=== PATIENT | male | born 1960 | race African-American/Black ===

== ENCOUNTER 2017-06-14 13:46 | Inpatient (IN) | payer OTHER ==
[2017-06-14 15:31] VITALS: BMI 20.3
--- NOTE | 2017-06-14 18:26 | HP ---
CIWA Score - CIWA Score Nausea/Vomitin-Mild Nausea/No Vomiting Muscle Tremors: 3 Anxiety: 3 Agitation: 2 Paroxysmal Sweats: 2 Orientation: 1-Uncertain about Date Tacttile Disturbances: 1-Very Mild Itch/Numbness Auditory Disturbances: 2-Mild Harshness/Frighten Visual Disturbances: 0-None Headache: 1-Very Mild CIWA-Ar Total Score: 16 Admission ROS BHS - HPI Chief Complaint: WITHDRAWAL SYMPTOMS Allergies/Adverse Reactions: Allergies Allergy/AdvReac Type Severity Reaction Status Date / Time No Known Allergies Allergy Verified 06/14/17 17:47 History of Present Illness: 56 y.o. man with an extensive history of alcohol and drug dependence is here seeking detox. He reports he completed detox at [facility] 3 months ago. He reports he does not have a significant period of sobriety. Exam Limitations: Intoxication - Ebola screening Have you traveled outside of the country in the last 21 days: No Have you had contact with anyone from an Ebola affected area: No Have you been sick,other than usual withdrawal symptoms: No Do you have a fever: No - Review of Systems Constitutional: Loss of Appetite, Changes in sleep, Unintentional Wgt. Loss EENT: reports: Blurred Vision, Double Vision, Hearing Loss Respiratory: reports: No Symptoms reported Cardiac: reports: No Symptoms Reported GI: reports: No Symptoms Reported : reports: No Symptoms Reported Musculoskeletal: reports: No Symptoms Reported Integumentary: reports: No Symptoms Reported Neuro: reports: Tingling (B/L LE) Endocrine: reports: No Symptoms Reported Hematology: reports: Anemia (SCOTT) Psychiatric: reports: Mood/Affect Appropiate, Orientated x3, Anxious Other Systems: Reviewed and Negative Patient History - Patient Medical History Hx Anemia: Yes Hx Asthma: No Hx Chronic Obstructive Pulmonary Disease (COPD): No Hx Cancer: Yes (Prostate CA ) Hx Cardiac Disorders: No Hx Congestive Heart Failure: No Hx Hypertension: Yes (currently on treatment) Hx Hypercholesterolemia: No Hx Pacemaker: No HX Cerebrovascular Accident: No Hx Seizures: No Hx Dementia: No Hx Diabetes: Yes (Metformin ) Hx Gastrointestinal Disorders: No Hx Liver Disease: No Hx Genitourinary Disorders: Yes (PROSTATE CA) Hx Sexually Transmitted Disorders: No Hx Renal Disease (ESRD): No Hx Thyroid Disease: No Hx Human Immunodeficiency Virus (HIV): No Hx Hepatitis C: Yes Hx Depression: No Hx Suicide Attempt: No (DENIES) Hx Bipolar Disorder: No Hx Schizophrenia: No - Patient Surgical History Past Surgical History: Yes Hx Neurologic Surgery: No Hx Cataract Extraction: No Hx Cardiac Surgery: No Hx Lung Surgery: No Hx Breast Surgery: No Hx Breast Biopsy: No Hx Abdominal Surgery: No Hx Appendectomy: No Hx Cholecystectomy: No Hx Genitourinary Surgery: Yes (SX FOR PROSTATE CANCER IN 2002) Hx Section: No Hx Orthopedic Surgery: No Other Surgical History: prostate Anesthesia Reaction: No - PPD History Previous Implant?: Yes Documented Results: Negative w/proof Implanted On Prior [facility] Admission?: Yes Date: 10/31/13 PPD to be Administered?: Yes - Reproductive History Patient is a Female of Child Bearing Age (11 -55 yrs old): No - Smoking Cessation Smoking history: Current some day smoker Have you smoked in the past 12 months: Yes Aproximately how many cigarettes per day: 1 Hx Chewing Tobacco Use: No Initiated information on smoking cessation: Yes 'Breaking Loose' booklet given: 06/14/17 - Substance & Tx. History Hx Alcohol Use: Yes Hx Substance Use: No Substance Use Type: Alcohol Hx Substance Use Treatment: Yes (Detox @ [facility] 3 months ago; Does not recall last rehab admission ) - Substances Abused Alcohol Route: Oral Frequency: Daily Amount used: beer- 6 - 24 oz Age of first use: 13 Date of Last Use: 06/14/17 Family Disease History - Family Disease History Family History: Denies Admission Physical Exam BHS - Vital Signs Vital Signs: Vital Signs - 24 hr 06/14/17 15:28 Temperature 96 F L Pulse Rate 76 Respiratory 20 Rate Blood Pressure 141/88 - Physical General Appearance: Yes: Disheveled, Alcohol on Breath, Thin, Tremorous, Sweating, Anxious HEENTM: Yes: Hearing grossly Normal, Normocephalic, Normal Voice Respiratory: Yes: Chest Non-Tender, Lungs Clear, Normal Breath Sounds, No Respiratory Distress, No Accessory Muscle Use Neck: Yes: No masses,lesions,Nodules, Trachea in good position Breast: Yes: Breast Exam Deferred Cardiology: Yes: Regular Rhythm, Regular Rate Abdominal: Yes: Normal Bowel Sounds, Non Tender, Flat, Soft Genitourinary: Yes: Other (No complaints reported) Back: Yes: Normal Inspection Musculoskeletal: Yes: Joint Stiffness (Right knee) Extremities: Yes: Normal Inspection, Normal Range of Motion, Non-Tender 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 NML intact, Alert, Normal Mood/Affect, Normal Response Integumentary: Yes: Normal Color, Dry, Warm Lymphatic: Yes: Within Normal Limits - Diagnostic (1) DM Diabetes mellitus type 2 Current Visit: Yes Status: Chronic (2) Essential hypertension Current Visit: Yes Status: Chronic (3) Alcohol dependence with uncomplicated withdrawal Current Visit: Yes Status: Chronic (4) Nicotine dependence Current Visit: Yes Status: Chronic Cleared for Admission [facility] - Detox or Rehab [facility] Level of Care: Medically Managed Detox Regimen/Protocol: Librium [facility] Breath Alcohol Content Breath Alcohol Content: 0.220 Urine Drug Screen - Results Drug Screen Negative: No Urine Drug Screen Results: GORDON-Cocaine, BZO-Benzodiazepines
[2017-06-14] MEDS ORDERED: chlordiazePOXIDE HCL 25 MG CAPSULE PO PRN (18:42)
[2017-06-14] MEDS ORDERED: LOPERAMIDE HCL 2 MG CAPSULE PO PRN (18:42)
[2017-06-14] MEDS ORDERED: guaiFENesin/D-METHORPHAN HB 10 ML UNIT-DOSE CUPS PO PRN (18:42)
[2017-06-14] MEDS ORDERED: ACETAMINOPHEN 325 MG TABLET (FP) PO PRN (18:42)
[2017-06-14] MEDS ORDERED: NICOTINE POLACRILEX 2 MG GUM BC PRN (18:42)
[2017-06-14] MEDS ORDERED: MAGNESIUM HYDROX 2400MG/30ML ORAL SUSPENSION 30 ML CUP PO PRN (18:42)
[2017-06-14] MEDS ORDERED: MAGNESIUM CITRATE 300 ML BOTTLE PO PRN (18:42)
[2017-06-14] MEDS ORDERED: P-EPHED 60MG/TRIPROLIDI 2.5MG TABLET PO PRN (18:42)
[2017-06-14] MEDS ORDERED: diphenhydrAMINE HCL 50 MG CAPSULE PO PRN (18:42)
[2017-06-14] MEDS ORDERED: chlordiazePOXIDE HCL 25 MG CAPSULE PO ONE (18:42)
[2017-06-14] MEDS ORDERED: MENTHOL/PHENOL 1 EACH UD MM PRN (18:42)
[2017-06-14] MEDS ORDERED: MAG HYDROX/AL HYDROX/SIMETH 30 ML UNIT-DOSE CUP PO PRN (18:42)
[2017-06-14] MEDS: THIAMINE HCL 100 MG TABLET (FP) PO SCH (22:29)
[2017-06-14] MEDS: chlordiazePOXIDE HCL 25 MG CAPSULE PO SCH (22:29)
[2017-06-14 23:10] LABS: URINE APPEARANCE CLEAR; URINE BILIRUBIN NEGATIVE (NEGATIVE); URINE BLOOD NEGATIVE (NEGATIVE); URINE COLOR COLORLESS; URINE GLUCOSE (UA) NEGATIVE (NEGATIVE); URINE KETONE NEGATIVE (NEGATIVE); URINE LEUK ESTERASE NEGATIVE (NEGATIVE); URINE NITRITE NEGATIVE (NEGATIVE); URINE PROTEIN NEGATIVE (NEGATIVE); URINE UROBILINOGEN NEGATIVE mg/dL (0.2-1.0)
[2017-06-15] MEDS: chlordiazePOXIDE HCL 25 MG CAPSULE PO SCH ×4 (06:02→22:24)
[2017-06-15] MEDS: metFORMIN HCL 500 MG TABLET (FP) PO SCH ×2 (07:13→17:26)
[2017-06-15 10:00] LABS: MCH 31.7 pg (25.7-33.7); MEAN CELL VOLUME 96.1 fl (80-96); MEAN PLT VOLUME 7.7 fl (7.5-11.1); PLATELET COUNT 152 K/MM3 (134-434); RDW 13.9 % (11.9-15.9); WHITE BLOOD COUNT 3.3 K/mm3 (4.0-10.0)
[2017-06-15] MEDS: LISINOPRIL 20 MG TABLET (FP) PO SCH (10:22)
[2017-06-15] MEDS: PRENATAL VITAMINS W/ FOLIC ACID TABLET (FP) PO SCH (10:24)
--- NOTE | 2017-06-15 10:24 | CONSULT ---
[facility] Psychiatric Consult - Data Date of interview: 06/15/17 Admission source: [facility] Identifying data: Readmission to [facility] for this 56 y/o AA male seeking detox treatment on for alcohol dependence (self-report of sporadic use of cannabis and crack/cocaine).Patient is ,a father of one,homeless ( alf),unemployed and supported on Welfare. Substance Abuse History: Fully discussed with the patient in this interview.He confirms this pattern of substance abuse described in this [facility] report : Smoking Cessation. Smoking history: Current some day smoker. Have you smoked in the past 12 months: Yes. Aproximately how many cigarettes per day: 1. Hx Chewing Tobacco Use: No. Initiated information on smoking cessation: Yes. ' Breaking Loose' booklet given: 06/14/17. - Substance & Tx. History. Hx Alcohol Use: Yes. Hx Substance Use: No. Substance Use Type: Alcohol. Hx Substance Use Treatment: Yes (Detox @ [facility] 3 months ago; Does not recall last rehab admission ). - Substances Abused. Alcohol. Route: Oral. Frequency: Daily. Amount used: beer- 6 - 24 oz. Age of first use: 13. Date of Last Use: 06/14/17 Medical History: Remarkable for cancer of prostate (surgery in 2002),diabetes mellitus,hypertension,arthritis,hepatitis C,chronic right knee pain and a history of anemia. Psychiatric History: Patient denies. Physical/Sexual Abuse/Trauma History: Patient denies. Additional Comment: Urine Drug Screen Results: GORDON-Cocaine, BZO- Benzodiazepines.Noted. Mental Status Exam - Mental Status Exam Alert and Oriented to: Time, Place, Person Patient Appearance: Well Groomed Mood: Nervous, Anxious Affect: Appropriate, Normal Range Patient Behavior: Fatigued, Cooperative Speech Pattern: Clear Voice Loudness: Normal Thought Process: Intact, Goal Oriented Thought Disorder: Not Present Hallucinations: Denies Suicidal Ideation: Denies Homicidal Ideation: Denies Insight/Judgement: Poor Sleep: Well Appetite: Good Muscle strength/Tone: Normal Gait/Station: Normal Psychiatric Findings - Problem List (Andrew 1, 2,3) (1) Alcohol dependence with uncomplicated withdrawal Current Visit: Yes Status: Chronic (2) Nicotine dependence Current Visit: Yes Status: Acute (3) DM Diabetes mellitus type 2 Current Visit: Yes Status: Chronic (4) Hepatitis C carrier Current Visit: Yes Status: Active - Initial Treatment Plan Initial Treatment Plan: Psychoeducation.Detoxification.Observation.
[2017-06-15 10:49] LABS: ALBUMIN 3.3 g/dl (3.4-5.0); ALK PHOS 132 U/L (45-117); ANION GAP 7 (8-16); BILIRUBIN,TOTAL 0.3 mg/dL (0.2-1.0); CALCIUM 8.8 mg/dL (8.5-10.1); CO2 23 mmol/L (21-32); CREATININE 0.8 mg/dL (0.7-1.3); GLUCOSE,RANDOM 119 mg/dL (74-106); SGOT/AST 45 U/L (15-37); SGPT/ALT 41 U/L (12-78); TOT PROT 6.4 g/dl (6.4-8.2)
--- NOTE | 2017-06-15 15:53 | PN ---
[facility] CIWA - CIWA Score Nausea/Vomitin-Mild Nausea/No Vomiting Muscle Tremors: 4-Moderate,w/Arms Extend Anxiety: 2 Agitation: 1-Slight > Activity Paroxysmal Sweats: 1-Minimal Palms Moist Orientation: 0-Oriented Tacttile Disturbances: 3-Moderate Itch/Numb/Burn Auditory Disturbances: 1-Very Mild Visual Disturbances: 3-Moderate Sensitivity Headache: 0-None Present CIWA-Ar Total Score: 16 [facility] Progress Note (SOAP) Subjective: Interrupted sleep, Tremors, Diarrhea. Objective: PT. A & O X 3. NO ACUTE DISTRESS. 06/15/17 15:49 Vital Signs Temperature 97.6 F 06/15/17 13:23 Pulse Rate 78 06/15/17 13:23 Respiratory Rate 18 06/15/17 13:23 Blood Pressure 162/97 06/15/17 13:23 O2 Sat by Pulse Oximetry (%) Laboratory Tests 06/14/17 06/14/17 06/15/17 17:54 22:50 05:14 WBC RBC Hgb Hct MCV MCH MCHC RDW Plt Count MPV Sodium Potassium Chloride Carbon Dioxide Anion Gap BUN Creatinine Creat Clearance w eGFR POC Glucometer 186 121 Random Glucose Calcium Total Bilirubin AST ALT Alkaline Phosphatase Total Protein Albumin Urine Color Colorless Urine Appearance Clear Urine pH 6.0 Ur Specific [place] <= 1.005 Urine Protein Negative Urine Glucose (UA) Negative Urine Ketones Negative Urine Blood Negative Urine Nitrite Negative Urine Bilirubin Negative Urine Urobilinogen Negative Ur Leukocyte Esterase Negative RPR Titer 06/15/17 06/15/17 06/15/17 07:30 07:30 07:30 WBC 3.3 L RBC 3.33 L Hgb 10.6 L D Hct 32.0 L MCV 96.1 H MCH 31.7 MCHC 33.0 RDW 13.9 Plt Count 152 D MPV 7.7 D Sodium 140 Potassium 4.2 D Chloride 110 H Carbon Dioxide 23 Anion Gap 7 L BUN 11 D Creatinine 0.8 D Creat Clearance w eGFR > 60 POC Glucometer Random Glucose 119 H Calcium 8.8 Total Bilirubin 0.3 D AST 45 H D ALT 41 Alkaline Phosphatase 132 H Total Protein 6.4 Albumin 3.3 L Urine Color Urine Appearance Urine pH Ur Specific [place] Urine Protein Urine Glucose (UA) Urine Ketones Urine Blood Urine Nitrite Urine Bilirubin Urine Urobilinogen Ur Leukocyte Esterase RPR Titer Nonreactive LABS NOTED. Assessment: 06/15/17 15:50 WITHDRAWAL SYMPTOMS. Plan: CONTINUE DETOX. FEOSOL, 325 MG PO WITH MEALS FOR LOW CBC LEVELS.
[2017-06-15] MEDS: FERROUS SO4 325 MG TABLET (FP) PO SCH (17:26)
[2017-06-15] MEDS ORDERED: cloNIDine HCL 0.1 MG TABLET PO ONE (18:29)
[2017-06-15] MEDS: THIAMINE HCL 100 MG TABLET (FP) PO SCH (22:24)
[2017-06-15] MEDS: hydrOXYzine PAMOATE 50 MG CAPSULE (FP) PO PRN (22:26)
[2017-06-16] MEDS: chlordiazePOXIDE HCL 25 MG CAPSULE PO SCH ×3 (05:53→17:04)
[2017-06-16] MEDS: metFORMIN HCL 500 MG TABLET (FP) PO SCH ×2 (06:20→17:04)
[2017-06-16] MEDS: FERROUS SO4 325 MG TABLET (FP) PO SCH ×2 (08:01→17:04)
--- NOTE | 2017-06-16 08:16 | EKG ---
Test Reason : Blood Pressure : / mmHG Vent. Rate : 079 BPM Atrial Rate : 079 BPM P-R Int : 168 ms QRS Dur : 086 ms QT Int : 378 ms P-R-T Axes : 066 040 053 degrees QTc Int : 433 ms NORMAL SINUS RHYTHM NORMAL ECG NO PREVIOUS ECGS AVAILABLE Confirmed by DEJAH GROSSMAN, RAMIRO ([id number]) on 06/16/2017 8:16:11 AM Referred By: Moose Love Confirmed By:RAMIRO POND MD
[2017-06-16] MEDS: PRENATAL VITAMINS W/ FOLIC ACID TABLET (FP) PO SCH (10:33)
[2017-06-16] MEDS: LISINOPRIL 20 MG TABLET (FP) PO SCH (10:33)
[2017-06-16] MEDS: CYCLOBENZAPRINE HCL 10 MG TABLET (FP) PO PRN (13:36)
--- NOTE | 2017-06-16 15:18 | PN ---
S CIWA - CIWA Score Nausea/Vomitin Muscle Tremors: 4-Moderate,w/Arms Extend Anxiety: 3 Agitation: 1-Slight > Activity Paroxysmal Sweats: 3 Orientation: 0-Oriented Tacttile Disturbances: 2-Mild Itch/Numbness/Burn Auditory Disturbances: 0-None Visual Disturbances: 3-Moderate Sensitivity Headache: 0-None Present CIWA-Ar Total Score: 18 [facility] Progress Note (SOAP) Subjective: Body aches, Lower Back ache, Interrupted Sleep, Tremors. Objective: PT. A & O X 3, OBSERVED AMBULATING AMBULATING ON UNIT. NO ACUTE DISTRESS. PT. DENIES CHEST PAIN. 06/16/17 15:16 Vital Signs Temperature 98.6 F 06/16/17 14:05 Pulse Rate 69 06/16/17 14:05 Respiratory Rate 20 06/16/17 14:05 Blood Pressure 152/91 06/16/17 14:05 O2 Sat by Pulse Oximetry (%) Laboratory Tests 06/14/17 06/14/17 06/15/17 17:54 22:50 05:14 WBC RBC Hgb Hct MCV MCH MCHC RDW Plt Count MPV Sodium Potassium Chloride Carbon Dioxide Anion Gap BUN Creatinine Creat Clearance w eGFR POC Glucometer 186 121 Random Glucose Calcium Total Bilirubin AST ALT Alkaline Phosphatase Total Protein Albumin Urine Color Colorless Urine Appearance Clear Urine pH 6.0 Ur Specific [place] <= 1.005 Urine Protein Negative Urine Glucose (UA) Negative Urine Ketones Negative Urine Blood Negative Urine Nitrite Negative Urine Bilirubin Negative Urine Urobilinogen Negative Ur Leukocyte Esterase Negative RPR Titer 06/15/17 06/15/17 06/15/17 07:30 07:30 07:30 WBC 3.3 L RBC 3.33 L Hgb 10.6 L D Hct 32.0 L MCV 96.1 H MCH 31.7 MCHC 33.0 RDW 13.9 Plt Count 152 D MPV 7.7 D Sodium 140 Potassium 4.2 D Chloride 110 H Carbon Dioxide 23 Anion Gap 7 L BUN 11 D Creatinine 0.8 D Creat Clearance w eGFR > 60 POC Glucometer Random Glucose 119 H Calcium 8.8 Total Bilirubin 0.3 D AST 45 H D ALT 41 Alkaline Phosphatase 132 H Total Protein 6.4 Albumin 3.3 L Urine Color Urine Appearance Urine pH Ur Specific [place] Urine Protein Urine Glucose (UA) Urine Ketones Urine Blood Urine Nitrite Urine Bilirubin Urine Urobilinogen Ur Leukocyte Esterase RPR Titer Nonreactive 06/15/17 06/16/17 16:16 05:52 WBC RBC Hgb Hct MCV MCH MCHC RDW Plt Count MPV Sodium Potassium Chloride Carbon Dioxide Anion Gap BUN Creatinine Creat Clearance w eGFR POC Glucometer 113 127 Random Glucose Calcium Total Bilirubin AST ALT Alkaline Phosphatase Total Protein Albumin Urine Color Urine Appearance Urine pH Ur Specific [place] Urine Protein Urine Glucose (UA) Urine Ketones Urine Blood Urine Nitrite Urine Bilirubin Urine Urobilinogen Ur Leukocyte Esterase RPR Titer LABS NOTED. Assessment: 06/16/17 15:16 WITHDRAWAL SYMPTOMS. Plan: CONTINUE DETOX.
[2017-06-16] MEDS ORDERED: cloNIDine HCL 0.1 MG TABLET PO ONE (17:35)
[2017-06-16] MEDS: IBUPROFEN 600 MG TABLET (FP) PO PRN (18:25)
[2017-06-16] MEDS: THIAMINE HCL 100 MG TABLET (FP) PO SCH (21:56)
[2017-06-16] MEDS: hydrOXYzine PAMOATE 50 MG CAPSULE (FP) PO PRN (21:57)
[2017-06-16] MEDS: chlordiazePOXIDE 5 MG CAPSULE PO SCH (21:59)
[2017-06-17] MEDS: chlordiazePOXIDE 5 MG CAPSULE PO SCH ×3 (05:34→17:00)
[2017-06-17] MEDS: metFORMIN HCL 500 MG TABLET (FP) PO SCH ×2 (07:45→17:00)
[2017-06-17] MEDS: FERROUS SO4 325 MG TABLET (FP) PO SCH ×2 (07:46→17:00)
[2017-06-17] MEDS: PRENATAL VITAMINS W/ FOLIC ACID TABLET (FP) PO SCH (10:35)
[2017-06-17] MEDS: LISINOPRIL 20 MG TABLET (FP) PO SCH (10:35)
--- NOTE | 2017-06-17 13:51 | PN ---
[facility] Progress Note (SOAP) Subjective: Tremor, chills, anxious, interrupted sleep Objective: 06/17/17 13:50 Last Vital Signs Temp Pulse Resp BP Pulse Ox 96.8 F L 71 18 128/84 06/17/17 10:18 06/17/17 10:18 06/17/17 10:18 06/17/17 10:18 Laboratory Tests 06/14/17 06/14/17 06/15/17 17:54 22:50 05:14 WBC RBC Hgb Hct MCV MCH MCHC RDW Plt Count MPV Sodium Potassium Chloride Carbon Dioxide Anion Gap BUN Creatinine Creat Clearance w eGFR POC Glucometer 186 121 Random Glucose Calcium Total Bilirubin AST ALT Alkaline Phosphatase Total Protein Albumin Urine Color Colorless Urine Appearance Clear Urine pH 6.0 Ur Specific [place] <= 1.005 Urine Protein Negative Urine Glucose (UA) Negative Urine Ketones Negative Urine Blood Negative Urine Nitrite Negative Urine Bilirubin Negative Urine Urobilinogen Negative Ur Leukocyte Esterase Negative RPR Titer 06/15/17 06/15/17 06/15/17 07:30 07:30 07:30 WBC 3.3 L RBC 3.33 L Hgb 10.6 L D Hct 32.0 L MCV 96.1 H MCH 31.7 MCHC 33.0 RDW 13.9 Plt Count 152 D MPV 7.7 D Sodium 140 Potassium 4.2 D Chloride 110 H Carbon Dioxide 23 Anion Gap 7 L BUN 11 D Creatinine 0.8 D Creat Clearance w eGFR > 60 POC Glucometer Random Glucose 119 H Calcium 8.8 Total Bilirubin 0.3 D AST 45 H D ALT 41 Alkaline Phosphatase 132 H Total Protein 6.4 Albumin 3.3 L Urine Color Urine Appearance Urine pH Ur Specific [place] Urine Protein Urine Glucose (UA) Urine Ketones Urine Blood Urine Nitrite Urine Bilirubin Urine Urobilinogen Ur Leukocyte Esterase RPR Titer Nonreactive 06/15/17 06/16/17 06/16/17 16:16 05:52 16:16 WBC RBC Hgb Hct MCV MCH MCHC RDW Plt Count MPV Sodium Potassium Chloride Carbon Dioxide Anion Gap BUN Creatinine Creat Clearance w eGFR POC Glucometer 113 127 115 Random Glucose Calcium Total Bilirubin AST ALT Alkaline Phosphatase Total Protein Albumin Urine Color Urine Appearance Urine pH Ur Specific [place] Urine Protein Urine Glucose (UA) Urine Ketones Urine Blood Urine Nitrite Urine Bilirubin Urine Urobilinogen Ur Leukocyte Esterase RPR Titer 06/17/17 05:32 WBC RBC Hgb Hct MCV MCH MCHC RDW Plt Count MPV Sodium Potassium Chloride Carbon Dioxide Anion Gap BUN Creatinine Creat Clearance w eGFR POC Glucometer 116 Random Glucose Calcium Total Bilirubin AST ALT Alkaline Phosphatase Total Protein Albumin Urine Color Urine Appearance Urine pH Ur Specific [place] Urine Protein Urine Glucose (UA) Urine Ketones Urine Blood Urine Nitrite Urine Bilirubin Urine Urobilinogen Ur Leukocyte Esterase RPR Titer Labs noted Assessment: 06/17/17 13:51 Withdrawal symptoms Plan: Continue detox
[2017-06-17] MEDS ORDERED: amLODIPine BESYLATE 5 MG TABLET (FP) PO ONE (17:10)
[2017-06-17] MEDS: chlordiazePOXIDE HCL 10 MG CAPSULE PO SCH (22:17)
[2017-06-17] MEDS: hydrOXYzine PAMOATE 50 MG CAPSULE (FP) PO PRN (22:17)
[2017-06-17] MEDS: CYCLOBENZAPRINE HCL 10 MG TABLET (FP) PO PRN (22:17)
[2017-06-17] MEDS: THIAMINE HCL 100 MG TABLET (FP) PO SCH (22:17)
[2017-06-17] MEDS: IBUPROFEN 600 MG TABLET (FP) PO PRN (22:19)
[2017-06-18 06:56] VITALS: BP 140/103; PULSE 77; TEMP 97
[2017-06-18] MEDS: chlordiazePOXIDE HCL 10 MG CAPSULE PO SCH (07:24)
[2017-06-18] MEDS ORDERED: amLODIPine BESYLATE 5 MG TABLET (FP) PO SCH (10:00)
--- NOTE | 2017-06-18 12:00 | DS ---
[facility] Detox Discharge Summary Admission Date: 06/14/17 Discharge Date: 06/18/17 - History Present History: Alcohol Dependence Additional Comments: PATIENT GOING HOME. PATIENT ADVISED TO CONSIDER LOCAL 12-STEP / AA/ NA OUTPATIENT PROGRAMS FOR AFTERCARE FOLLOW-UP. PATIENT DISCHARGED FROM UNIT IN STABLE MEDICAL CONDITION. Pertinent Past History: Type II DM, HTN, Hep C, History of anemia. - Physical Exam Results Vital Signs: Vital Signs Temperature 97.0 F L 06/18/17 06:55 Pulse Rate 77 06/18/17 06:55 Respiratory Rate 18 06/18/17 06:55 Blood Pressure 140/103 06/18/17 06:55 O2 Sat by Pulse Oximetry (%) Pertinent Admission Physical Exam Findings: WITHDRAWAL SYMPTOMS. Laboratory Tests 06/14/17 06/14/17 06/15/17 17:54 22:50 05:14 WBC RBC Hgb Hct MCV MCH MCHC RDW Plt Count MPV Sodium Potassium Chloride Carbon Dioxide Anion Gap BUN Creatinine Creat Clearance w eGFR POC Glucometer 186 121 Random Glucose Calcium Total Bilirubin AST ALT Alkaline Phosphatase Total Protein Albumin Urine Color Colorless Urine Appearance Clear Urine pH 6.0 Ur Specific [place] <= 1.005 Urine Protein Negative Urine Glucose (UA) Negative Urine Ketones Negative Urine Blood Negative Urine Nitrite Negative Urine Bilirubin Negative Urine Urobilinogen Negative Ur Leukocyte Esterase Negative RPR Titer 06/15/17 06/15/17 06/15/17 07:30 07:30 07:30 WBC 3.3 L RBC 3.33 L Hgb 10.6 L D Hct 32.0 L MCV 96.1 H MCH 31.7 MCHC 33.0 RDW 13.9 Plt Count 152 D MPV 7.7 D Sodium 140 Potassium 4.2 D Chloride 110 H Carbon Dioxide 23 Anion Gap 7 L BUN 11 D Creatinine 0.8 D Creat Clearance w eGFR > 60 POC Glucometer Random Glucose 119 H Calcium 8.8 Total Bilirubin 0.3 D AST 45 H D ALT 41 Alkaline Phosphatase 132 H Total Protein 6.4 Albumin 3.3 L Urine Color Urine Appearance Urine pH Ur Specific [place] Urine Protein Urine Glucose (UA) Urine Ketones Urine Blood Urine Nitrite Urine Bilirubin Urine Urobilinogen Ur Leukocyte Esterase RPR Titer Nonreactive 06/15/17 06/16/17 06/16/17 16:16 05:52 16:16 WBC RBC Hgb Hct MCV MCH MCHC RDW Plt Count MPV Sodium Potassium Chloride Carbon Dioxide Anion Gap BUN Creatinine Creat Clearance w eGFR POC Glucometer 113 127 115 Random Glucose Calcium Total Bilirubin AST ALT Alkaline Phosphatase Total Protein Albumin Urine Color Urine Appearance Urine pH Ur Specific [place] Urine Protein Urine Glucose (UA) Urine Ketones Urine Blood Urine Nitrite Urine Bilirubin Urine Urobilinogen Ur Leukocyte Esterase RPR Titer 06/17/17 06/17/17 06/18/17 05:32 16:20 05:28 WBC RBC Hgb Hct MCV MCH MCHC RDW Plt Count MPV Sodium Potassium Chloride Carbon Dioxide Anion Gap BUN Creatinine Creat Clearance w eGFR POC Glucometer 116 119 122 Random Glucose Calcium Total Bilirubin AST ALT Alkaline Phosphatase Total Protein Albumin Urine Color Urine Appearance Urine pH Ur Specific [place] Urine Protein Urine Glucose (UA) Urine Ketones Urine Blood Urine Nitrite Urine Bilirubin Urine Urobilinogen Ur Leukocyte Esterase RPR Titer LABS NOTED. - Treatment Hospital Course: Detox Protocol Followed, Detoxed Safely, Responded well, Discharged Condition Good Patient has Accepted a Rehab Referral to: PT. GOING HOME, ADVISED TO F/U WITH LOCAL 12-STEP/AA PROGRAM. - Medication Discharge Medications: Ambulatory Orders Amlodipine Besylate [Norvasc -] 5 mg PO DAILY 10/29/13 Lisinopril [Prinivil -] 20 mg PO DAILY 10/29/13 - Diagnosis (1) Hepatitis C carrier Status: Chronic (2) Nicotine dependence Status: Chronic Qualifiers: Nicotine product type: cigarettes Substance use status: uncomplicated Qualified Code(s): F17.210 - Nicotine dependence, cigarettes, uncomplicated (3) Alcohol dependence with uncomplicated withdrawal Status: Acute (4) DM Diabetes mellitus type 2 Status: Chronic (5) Essential hypertension Status: Chronic - AMA Did Patient Leave Against Medical Advice: No
== END 2017-06-18 06:45 | disposition home or self-care (01) | DRG 775 ==
LOC: YASAS 13:46 → Y3N 18:25
PROVIDERS: ADMIT Internal Medicine; ATTEND Internal Medicine
PROC: HZ2ZZZZ Detoxification Services for Substance Abuse Treatment (ICD-10-PCS; principal; 2017-06-14)
DX: F10.230 Alcohol dependence with withdrawal, uncomplicated (principal); F17.210 Nicotine dependence, cigarettes, uncomplicated; I10 Essential (primary) hypertension; E11.9 Type 2 diabetes mellitus without complications; B18.2 Chronic viral hepatitis C; Z85.46 Personal history of malignant neoplasm of prostate; Z79.84 Long term (current) use of oral hypoglycemic drugs
CPT/HCPCS: 36415; 80053; 81003; 85027; 86593; 93005; 93010

== ENCOUNTER 2018-10-23 14:13 | Inpatient (IN) | payer OTHER ==
[2018-10-23 14:56] VITALS: BMI 20.3
--- NOTE | 2018-10-23 15:33 | HP ---
CIWA Score Nausea/Vomitin Muscle Tremors: 2 Anxiety: 2 Agitation: 2 Paroxysmal Sweats: 1-Minimal Palms Moist Orientation: 0-Oriented Tacttile Disturbances: 1-Very Mild Itch/Numbness Auditory Disturbances: 1-Very Mild Visual Disturbances: 0-None Headache: 2-Mild CIWA-Ar Total Score: 13 - Admission Criteria [facility]ASAS Guidelines: Admission for Medically Managed Detox: Requires at least one of the followin. CIWA greater than 12 2. Seizures within the past 24 hours 3. Delirium tremens within the past 24 hours 4. Hallucinations within the past 24 hours 5. Acute intervention needed for co occurring medical disorder 6. Acute intervention needed for co occurring psychiatric disorder 7. Severe withdrawal that cannot be handled at a lower level of care (continued vomiting, continued diarrhea, abnormal vital signs) requiring intravenous medication and/or fluids 8. Patient presents the following: CIWA greater than 12 Admission Criteria Met: Admission criteria met Admission ROS BHS - HPI Chief Complaint: i need help to help to stop drinking alcohol Allergies/Adverse Reactions: Allergies Allergy/AdvReac Type Severity Reaction Status Date / Time No Known Allergies Allergy Verified 10/23/18 15:24 History of Present Illness: this 57 years old male with alcohol dependence,seeking detox,withdrawal symptom, last detox 06/14/17 to 06/18/17 syncope alcohol related history of hypertension,type 2 dm history of cancer of prostate had surgery longest period of sobriety 9 months low back pain Exam Limitations: No Limitations - Ebola screening Have you traveled outside of the country in the last 21 days: No Have you had contact with anyone from an Ebola affected area: No Have you been sick,other than usual withdrawal symptoms: No Do you have a fever: No - Review of Systems Constitutional: Loss of Appetite, Malaise, Night Sweats, Changes in sleep, Weakness, Unintentional Wgt. Loss EENT: reports: Nose Congestion Respiratory: reports: No Symptoms reported Cardiac: reports: No Symptoms Reported GI: reports: Nausea, Poor Appetite, Abdominal cramping : reports: No Symptoms Reported, Other (history of cancer of prostate) Musculoskeletal: reports: Back Pain, Muscle Pain Integumentary: reports: Dryness Neuro: reports: Headache, Tremors Endocrine: reports: No Symptoms Reported, Other (type 2 dm) Hematology: reports: No Symptoms Reported Psychiatric: reports: No Sypmtoms Reported Patient History - Patient Medical History Hx Anemia: Yes Hx Asthma: No Hx Chronic Obstructive Pulmonary Disease (COPD): No Hx Cancer: Yes (Prostate CA ) Hx Cardiac Disorders: No Hx Congestive Heart Failure: No Hx Hypertension: Yes (currently on treatment) Hx Hypercholesterolemia: No Hx Pacemaker: No HX Cerebrovascular Accident: No Hx Seizures: No Hx Dementia: No Hx Diabetes: Yes (Metformin ) Hx Gastrointestinal Disorders: No Hx Liver Disease: No Hx Genitourinary Disorders: Yes (PROSTATE CA) Hx Sexually Transmitted Disorders: No Hx Renal Disease (ESRD): No Hx Thyroid Disease: No Hx Human Immunodeficiency Virus (HIV): No Hx Hepatitis C: Yes (treated) Hx Depression: No Hx Suicide Attempt: No (DENIES) Hx Bipolar Disorder: No Hx Schizophrenia: No Other Medical History: no suicidal,nohomicidal - Patient Surgical History Past Surgical History: Yes Hx Neurologic Surgery: No Hx Cataract Extraction: No Hx Cardiac Surgery: No Hx Lung Surgery: No Hx Breast Surgery: No Hx Breast Biopsy: No Hx Abdominal Surgery: No Hx Appendectomy: No Hx Cholecystectomy: No Hx Genitourinary Surgery: Yes (SX FOR PROSTATE CANCER IN 2002) Hx Section: No Hx Orthopedic Surgery: No Other Surgical History: prostate Anesthesia Reaction: No - PPD History Previous Implant?: Yes Documented Results: Negative w/o proof Implanted On Prior [facility] Admission?: Yes Date: 06/16/17 Results: 0 mm PPD to be Administered?: Yes - Smoking Cessation Smoking history: Current some day smoker Have you smoked in the past 12 months: Yes Aproximately how many cigarettes per day: 1 Hx Chewing Tobacco Use: No Initiated information on smoking cessation: Yes 'Breaking Loose' booklet given: 10/23/18 - Substance & Tx. History Hx Alcohol Use: Yes Hx Substance Use: No Substance Use Type: Alcohol Hx Substance Use Treatment: Yes ([facility] 06/14/17 to 06/18/17) - Substances Abused Alcohol Route: Oral Frequency: Daily Amount used: 6 24 OZ BEERS Age of first use: 13 Date of Last Use: 10/23/18 Family Disease History - Family Disease History Family History: Denies Admission Physical Exam BHS - Vital Signs Vital Signs: Vital Signs - 24 hr 10/23/18 14:51 Temperature 96.2 F L Pulse Rate 73 Respiratory 20 Rate Blood Pressure 155/103 H - Physical General Appearance: Yes: Moderate Distress, Tremorous, Irritable, Sweating, Anxious HEENTM: Yes: Normal ENT Inspection, TERESA, Pharynx Normal Respiratory: Yes: Lungs Clear, Normal Breath Sounds, No Respiratory Distress Neck: Yes: Within Normal Limits, Supple, Trachea in good position Breast: Yes: Within Normal Limits Cardiology: Yes: Within Normal Limits, Regular Rhythm, Regular Rate, S1, S2 Abdominal: Yes: Within Normal Limits, Normal Bowel Sounds, Non Tender, Soft Genitourinary: Yes: Within Normal Limits, Other (history of cancer of prostate) Back: Yes: Muscle Spasm Musculoskeletal: Yes: Back pain, Muscle Pain Extremities: Yes: Tremors 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[employer] II-XII NML intact, Fully Oriented, Alert, Motor Strength 5/5 Integumentary: Yes: Dry Lymphatic: Yes: Within Normal Limits - Diagnostic (1) Alcohol dependence with uncomplicated withdrawal Current Visit: No Status: Acute (2) Alcohol dependence with uncomplicated intoxication Current Visit: Yes Status: Acute (3) Nicotine dependence Current Visit: No Status: Chronic Qualifiers: Nicotine product type: cigarettes Substance use status: uncomplicated Qualified Code(s): F17.210 - Nicotine dependence, cigarettes, uncomplicated (4) Syncope Current Visit: Yes Status: Acute (5) DM Diabetes mellitus type 2 Current Visit: No Status: Chronic (6) Essential hypertension Current Visit: No Status: Chronic (7) Hepatitis C Current Visit: Yes Status: Acute (8) History of prostate cancer Current Visit: Yes Status: Acute Cleared for Admission [facility] - Detox or Rehab [facility] Level of Care: Medically Managed Detox Regimen/Protocol: Librium [facility] Breath Alcohol Content Breath Alcohol Content: 0.378 Urine Drug Screen - Results Drug Screen Negative: No Urine Drug Screen Results: BZO-Benzodiazepines
[2018-10-23] MEDS ORDERED: MENTHOL/PHENOL 1 EACH UD MM PRN (15:46)
[2018-10-23] MEDS ORDERED: MAGNESIUM HYDROX 2400MG/30ML ORAL SUSPENSION 30 ML CUP PO PRN (15:46)
[2018-10-23] MEDS ORDERED: LOPERAMIDE HCL 2 MG CAPSULE PO PRN (15:46)
[2018-10-23] MEDS ORDERED: IBUPROFEN 400 MG TABLET (FP) PO PRN (15:46)
[2018-10-23] MEDS ORDERED: P-EPHED 60MG/TRIPROLIDI 2.5MG TABLET PO PRN (15:46)
[2018-10-23] MEDS ORDERED: MAG HYDROX/AL HYDROX/SIMETH 30 ML UNIT-DOSE CUP PO PRN (15:46)
[2018-10-23] MEDS ORDERED: MAGNESIUM CITRATE 300 ML BOTTLE PO PRN (15:46)
[2018-10-23] MEDS ORDERED: ACETAMINOPHEN 325 MG TABLET (FP) PO PRN (15:46)
[2018-10-23] MEDS: chlordiazePOXIDE HCL 25 MG CAPSULE PO PRN (17:24)
[2018-10-23] MEDS ORDERED: LISINOPRIL 20 MG TABLET (FP) PO ONE (17:30)
[2018-10-23] MEDS ORDERED: LISINOPRIL 20 MG TABLET (FP) PO SCH (22:00)
[2018-10-23] MEDS: chlordiazePOXIDE HCL 25 MG CAPSULE PO SCH (22:27)
[2018-10-23] MEDS: THIAMINE HCL 100 MG TABLET (FP) PO SCH (22:27)
[2018-10-23] MEDS: MELATONIN 5 MG TABLETS PO PRN (22:27)
[2018-10-24] MEDS: chlordiazePOXIDE HCL 25 MG CAPSULE PO SCH ×4 (05:13→22:20)
[2018-10-24] MEDS: metFORMIN HCL 500 MG TABLET (FP) PO SCH (06:01)
[2018-10-24] MEDS: LISINOPRIL 20 MG TABLET (FP) PO SCH ×2 (10:24→22:20)
[2018-10-24] MEDS: PRENATAL VITAMINS W/ FOLIC ACID TABLET (FP) PO SCH (10:25)
[2018-10-24 10:47] LABS: HEMATOCRIT 35.7 % (35.4-49); HEMOGLOBIN 11.4 GM/dL (11.7-16.9); MEAN CELL VOLUME 100.1 fl (80-96); MEAN PLT VOLUME 8.7 fl (7.5-11.1); PLATELET COUNT 91 K/MM3 (134-434); RBC 3.57 M/mm3 (4.00-5.60); RDW 12.8 % (11.9-15.9); WHITE BLOOD COUNT 3.3 K/mm3 (4.0-10.0)
[2018-10-24 11:31] LABS: ALBUMIN 3.5 g/dl (3.4-5.0); ALK PHOS 126 U/L (45-117); ANION GAP 11 MMOL/L (8-16); BILIRUBIN,TOTAL 0.5 mg/dL (0.2-1); BLOOD UREA NITROGEN 21 mg/dL (7-18); CALCIUM 8.4 mg/dL (8.5-10.1); CHLORIDE 112 mmol/L (98-107); CO2 22 mmol/L (21-32); CREATININE 1.1 mg/dL (0.55-1.3); GLUCOSE,RANDOM 95 mg/dL (74-106); POTASSIUM 3.6 mmol/L (3.5-5.1); SGOT/AST 96 U/L (15-37); SGPT/ALT 45 U/L (13-61); SODIUM 145 mmol/L (136-145); TOT PROT 7.1 g/dl (6.4-8.2)
--- NOTE | 2018-10-24 13:59 | PN ---
[facility] CIWA - CIWA Score Nausea/Vomitin-Mild Nausea/No Vomiting Muscle Tremors: 3 Anxiety: 2 Agitation: 2 Paroxysmal Sweats: 1-Minimal Palms Moist Orientation: 1-Uncertain about Date Tacttile Disturbances: 0-None Auditory Disturbances: 0-None Visual Disturbances: 0-None Headache: 2-Mild CIWA-Ar Total Score: 12 S Progress Note (SOAP) Subjective: tremor sweat restlessness anxiety low energy Objective: 10/24/18 14:01 Vital Signs Temperature 97.5 F L 10/24/18 13:24 Pulse Rate 71 10/24/18 13:24 Respiratory Rate 17 10/24/18 13:24 Blood Pressure 180/91 H 10/24/18 13:24 O2 Sat by Pulse Oximetry (%) Laboratory Last Values WBC 3.3 K/mm3 (4.0-10.0) L 10/24/18 07:00 RBC 3.57 M/mm3 (4.00-5.60) L 10/24/18 07:00 Hgb 11.4 GM/dL (11.7-16.9) L 10/24/18 07:00 Hct 35.7 % (35.4-49) 10/24/18 07:00 MCV 100.1 fl (80-96) H 10/24/18 07:00 MCH 32.0 pg (25.7-33.7) 10/24/18 07:00 MCHC 32.0 g/dl (32.0-35.9) 10/24/18 07:00 RDW 12.8 % (11.9-15.9) 10/24/18 07:00 Plt Count 91 K/MM3 (134-434) L D 10/24/18 07:00 MPV 8.7 fl (7.5-11.1) D 10/24/18 07:00 Manual Slide Review 10/24/18 07:00 Platelet Comment No clotting detected 10/24/18 07:00 Sodium 145 mmol/L (136-145) 10/24/18 07:00 Potassium 3.6 mmol/L (3.5-5.1) 10/24/18 07:00 Chloride 112 mmol/L (98-107) H 10/24/18 07:00 Carbon Dioxide 22 mmol/L (21-32) 10/24/18 07:00 Anion Gap 11 MMOL/L (8-16) 10/24/18 07:00 BUN 21 mg/dL (7-18) H 10/24/18 07:00 Creatinine 1.1 mg/dL (0.55-1.3) 10/24/18 07:00 Creat Clearance w eGFR > 60 (>60) 10/24/18 07:00 POC Glucometer 114 UNITS (80-120) 10/24/18 05:12 Random Glucose 95 mg/dL (74-106) 10/24/18 07:00 Calcium 8.4 mg/dL (8.5-10.1) L 10/24/18 07:00 Total Bilirubin 0.5 mg/dL (0.2-1) 10/24/18 07:00 AST 96 U/L (15-37) H 10/24/18 07:00 ALT 45 U/L (13-61) 10/24/18 07:00 Alkaline Phosphatase 126 U/L (45-117) H 10/24/18 07:00 Total Protein 7.1 g/dl (6.4-8.2) 10/24/18 07:00 Albumin 3.5 g/dl (3.4-5.0) 10/24/18 07:00 RPR Titer Nonreactive (NONREACTIVE) 10/24/18 07:00 lab noted hypertension liver enzyme elevation Assessment: 10/24/18 14:02 withdrawal sx hypertension Plan: continue detox begin amlodipin
[2018-10-24] MEDS: amLODIPine BESYLATE 10 MG TABLET (FP) PO SCH (14:12)
[2018-10-24] MEDS: chlordiazePOXIDE HCL 25 MG CAPSULE PO PRN ×2 (15:41→19:22)
[2018-10-24] MEDS: THIAMINE HCL 100 MG TABLET (FP) PO SCH (22:20)
[2018-10-25] MEDS: chlordiazePOXIDE HCL 25 MG CAPSULE PO SCH ×3 (05:22→17:26)
[2018-10-25] MEDS: metFORMIN HCL 500 MG TABLET (FP) PO SCH (07:33)
[2018-10-25] MEDS: LISINOPRIL 20 MG TABLET (FP) PO SCH ×2 (10:21→22:18)
[2018-10-25] MEDS: amLODIPine BESYLATE 10 MG TABLET (FP) PO SCH (10:21)
[2018-10-25] MEDS: PRENATAL VITAMINS W/ FOLIC ACID TABLET (FP) PO SCH (10:21)
--- NOTE | 2018-10-25 12:08 | PN ---
S CIWA - CIWA Score Nausea/Vomitin Muscle Tremors: 4-Moderate,w/Arms Extend Anxiety: 2 Agitation: 2 Paroxysmal Sweats: No Perspiration Orientation: 0-Oriented Tacttile Disturbances: 0-None Auditory Disturbances: 0-None Visual Disturbances: 0-None Headache: 0-None Present CIWA-Ar Total Score: 10 S Progress Note (SOAP) Subjective: PATIENT C/O SHAKES, ANXIETY/RESTLESS, NAUSEA Objective: 10/25/18 12:07 Vital Signs Temperature 98.5 F 10/25/18 10:54 Pulse Rate 64 10/25/18 10:54 Respiratory Rate 18 10/25/18 10:54 Blood Pressure 134/68 10/25/18 10:54 O2 Sat by Pulse Oximetry (%) Laboratory Tests 10/23/18 10/24/18 10/24/18 15:36 05:12 07:00 WBC 3.3 L RBC 3.57 L Hgb 11.4 L Hct 35.7 MCV 100.1 H MCH 32.0 MCHC 32.0 RDW 12.8 Plt Count 91 L D MPV 8.7 D Manual Slide Review Platelet Comment No clotting detected Sodium Potassium Chloride Carbon Dioxide Anion Gap BUN Creatinine Creat Clearance w eGFR POC Glucometer 86 114 Random Glucose Calcium Total Bilirubin AST ALT Alkaline Phosphatase Total Protein Albumin RPR Titer 10/24/18 10/24/18 10/24/18 07:00 07:00 16:29 WBC RBC Hgb Hct MCV MCH MCHC RDW Plt Count MPV Manual Slide Review Platelet Comment Sodium 145 Potassium 3.6 Chloride 112 H Carbon Dioxide 22 Anion Gap 11 BUN 21 H Creatinine 1.1 Creat Clearance w eGFR > 60 POC Glucometer 118 Random Glucose 95 Calcium 8.4 L Total Bilirubin 0.5 AST 96 H ALT 45 Alkaline Phosphatase 126 H Total Protein 7.1 Albumin 3.5 RPR Titer Nonreactive 10/25/18 10/25/18 05:21 07:00 WBC RBC Hgb Hct MCV MCH MCHC RDW Plt Count MPV Manual Slide Review Platelet Comment Sodium Potassium Chloride Carbon Dioxide Anion Gap BUN Creatinine Creat Clearance w eGFR POC Glucometer 146 Random Glucose Calcium Total Bilirubin AST 116 H ALT Alkaline Phosphatase Total Protein Albumin RPR Titer PE: ALERT AND ORIENTED X 3 SKIN WARM AND DRY EXT FULL ROM, +TREMORS AMB AD ZEV +ANXIETY/RESTLESS Assessment: 10/25/18 12:08 WITHDRAWAL SX Plan: CONTINUE DETOX ENCOURAGE ORAL FLUIDS CONTINUE TO MONITOR CLINICALLY
[2018-10-25] MEDS: hydrOXYzine PAMOATE 25 MG CAPSULE (FP) PO PRN (17:28)
[2018-10-25] MEDS: guaiFENesin/D-METHORPHAN HB 10 ML UNIT-DOSE CUPS PO PRN (20:08)
[2018-10-25] MEDS: THIAMINE HCL 100 MG TABLET (FP) PO SCH (22:18)
[2018-10-25] MEDS: chlordiazePOXIDE 5 MG CAPSULE PO SCH (22:19)
[2018-10-25] MEDS: MELATONIN 5 MG TABLETS PO PRN (22:19)
[2018-10-26] MEDS: chlordiazePOXIDE 5 MG CAPSULE PO SCH ×3 (05:17→17:20)
[2018-10-26] MEDS: metFORMIN HCL 500 MG TABLET (FP) PO SCH (06:02)
[2018-10-26] MEDS: PRENATAL VITAMINS W/ FOLIC ACID TABLET (FP) PO SCH (10:20)
[2018-10-26] MEDS: amLODIPine BESYLATE 10 MG TABLET (FP) PO SCH (10:21)
[2018-10-26] MEDS: LISINOPRIL 20 MG TABLET (FP) PO SCH ×2 (10:21→22:19)
--- NOTE | 2018-10-26 10:56 | PN ---
[facility] Progress Note (SOAP) Subjective: Arthritic pain to hands and feet,tremors, sweats and interrupted sleep Objective: 10/26/18 10:56 Vital Signs Temperature 98.4 F 10/26/18 09:43 Pulse Rate 81 10/26/18 09:43 Respiratory Rate 18 12 09:43 Blood Pressure 133/78 10/26/18 09:43 O2 Sat by Pulse Oximetry (%) Laboratory Last Values WBC 3.3 K/mm3 (4.0-10.0) L 10/24/18 07:00 RBC 3.57 M/mm3 (4.00-5.60) L 10/24/18 07:00 Hgb 11.4 GM/dL (11.7-16.9) L 10/24/18 07:00 Hct 35.7 % (35.4-49) 10/24/18 07:00 MCV 100.1 fl (80-96) H 10/24/18 07:00 MCH 32.0 pg (25.7-33.7) 10/24/18 07:00 MCHC 32.0 g/dl (32.0-35.9) 10/24/18 07:00 RDW 12.8 % (11.9-15.9) 10/24/18 07:00 Plt Count 91 K/MM3 (134-434) L D 10/24/18 07:00 MPV 8.7 fl (7.5-11.1) D 10/24/18 07:00 Manual Slide Review 10/24/18 07:00 Platelet Comment No clotting detected 10/24/18 07:00 Sodium 145 mmol/L (136-145) 10/24/18 07:00 Potassium 3.6 mmol/L (3.5-5.1) 10/24/18 07:00 Chloride 112 mmol/L (98-107) H 10/24/18 07:00 Carbon Dioxide 22 mmol/L (21-32) 10/24/18 07:00 Anion Gap 11 MMOL/L (8-16) 10/24/18 07:00 BUN 21 mg/dL (7-18) H 10/24/18 07:00 Creatinine 1.1 mg/dL (0.55-1.3) 10/24/18 07:00 Creat Clearance w eGFR > 60 (>60) 10/24/18 07:00 POC Glucometer 165 UNITS (80-120) 10/26/18 05:17 Random Glucose 95 mg/dL (74-106) 10/24/18 07:00 Calcium 8.4 mg/dL (8.5-10.1) L 10/24/18 07:00 Total Bilirubin 0.5 mg/dL (0.2-1) 10/24/18 07:00 AST 116 U/L (15-37) H 10/25/18 07:00 ALT 45 U/L (13-61) 10/24/18 07:00 Alkaline Phosphatase 126 U/L (45-117) H 10/24/18 07:00 Total Protein 7.1 g/dl (6.4-8.2) 10/24/18 07:00 Albumin 3.5 g/dl (3.4-5.0) 10/24/18 07:00 RPR Titer Nonreactive (NONREACTIVE) 10/24/18 07:00 Labs noted Assessment: 10/26/18 10:56 Withdrawal sx Plan: Continue detox
[2018-10-26] MEDS: guaiFENesin/D-METHORPHAN HB 10 ML UNIT-DOSE CUPS PO PRN (19:59)
[2018-10-26] MEDS: THIAMINE HCL 100 MG TABLET (FP) PO SCH (22:20)
[2018-10-26] MEDS: MELATONIN 5 MG TABLETS PO PRN (22:20)
[2018-10-26] MEDS: chlordiazePOXIDE HCL 10 MG CAPSULE PO SCH (22:20)
[2018-10-26] MEDS: hydrOXYzine PAMOATE 25 MG CAPSULE (FP) PO PRN (22:21)
[2018-10-27] MEDS: chlordiazePOXIDE HCL 10 MG CAPSULE PO SCH (06:03)
[2018-10-27 06:24] VITALS: BP 138/82; PULSE 64; TEMP 97.3
[2018-10-27] MEDS: metFORMIN HCL 500 MG TABLET (FP) PO SCH (07:56)
--- NOTE | 2018-10-27 12:05 | DS ---
[facility] Detox Discharge Summary Admission Date: 10/23/18 Discharge Date: 10/27/18 - History Present History: Alcohol Dependence Additional Comments: Patient completed detox successfully. Patient to follow up with his PCP within 1 -2 weeks. Pertinent Past History: Alcohol dependence Nicotine dependence DMT2 with hyperglycemia HTN Hepatitis C History of prostate cancer - Physical Exam Results Vital Signs: Vital Signs Temperature 97.3 F L 10/27/18 06:23 Pulse Rate 64 10/27/18 06:23 Respiratory Rate 18 10/27/18 06:23 Blood Pressure 138/82 10/27/18 06:23 O2 Sat by Pulse Oximetry (%) Pertinent Admission Physical Exam Findings: Withdrawal symptoms Laboratory Tests 10/23/18 10/24/18 10/24/18 15:36 05:12 07:00 WBC 3.3 L RBC 3.57 L Hgb 11.4 L Hct 35.7 MCV 100.1 H MCH 32.0 MCHC 32.0 RDW 12.8 Plt Count 91 L D MPV 8.7 D Manual Slide Review Platelet Comment No clotting detected Sodium Potassium Chloride Carbon Dioxide Anion Gap BUN Creatinine Creat Clearance w eGFR POC Glucometer 86 114 Random Glucose Calcium Total Bilirubin AST ALT Alkaline Phosphatase Total Protein Albumin RPR Titer 10/24/18 10/24/18 10/24/18 07:00 07:00 16:29 WBC RBC Hgb Hct MCV MCH MCHC RDW Plt Count MPV Manual Slide Review Platelet Comment Sodium 145 Potassium 3.6 Chloride 112 H Carbon Dioxide 22 Anion Gap 11 BUN 21 H Creatinine 1.1 Creat Clearance w eGFR > 60 POC Glucometer 118 Random Glucose 95 Calcium 8.4 L Total Bilirubin 0.5 AST 96 H ALT 45 Alkaline Phosphatase 126 H Total Protein 7.1 Albumin 3.5 RPR Titer Nonreactive 10/25/18 10/25/18 10/25/18 05:21 07:00 16:22 WBC RBC Hgb Hct MCV MCH MCHC RDW Plt Count MPV Manual Slide Review Platelet Comment Sodium Potassium Chloride Carbon Dioxide Anion Gap BUN Creatinine Creat Clearance w eGFR POC Glucometer 146 246 Random Glucose Calcium Total Bilirubin AST 116 H ALT Alkaline Phosphatase Total Protein Albumin RPR Titer 10/26/18 10/26/18 10/27/18 05:17 16:53 06:03 WBC RBC Hgb Hct MCV MCH MCHC RDW Plt Count MPV Manual Slide Review Platelet Comment Sodium Potassium Chloride Carbon Dioxide Anion Gap BUN Creatinine Creat Clearance w eGFR POC Glucometer 165 170 202 Random Glucose Calcium Total Bilirubin AST ALT Alkaline Phosphatase Total Protein Albumin RPR Titer Labs reviewed: plt 91, bun 21, elevated glucose due to DMT2. - Treatment Hospital Course: Detox Protocol Followed, Detoxed Safely, Responded well, Discharged Condition Good - Medication Discharge Medications: Ambulatory Orders Lisinopril [Prinivil -] 20 mg PO BID 10/29/13 Metformin HCl [Glucophage] 500 mg PO 10/23/18 Amlodipine Besylate [Norvasc -] 10 mg PO 10/24/18 - Diagnosis (1) Azotemia Status: Acute (2) Thrombocytopenia Status: Acute (3) Type 2 diabetes mellitus with hyperglycemia Status: Chronic (4) Alcohol dependence with uncomplicated withdrawal Status: Acute (5) History of prostate cancer Status: Chronic (6) Essential hypertension Status: Chronic (7) Hepatitis C Status: Chronic Qualifiers: Viral hepatitis chronicity: chronic Hepatic coma status: without hepatic coma Qualified Code(s): B18.2 - Chronic viral hepatitis C (8) Nicotine dependence Status: Chronic Qualifiers: Nicotine product type: cigarettes Substance use status: uncomplicated Qualified Code(s): F17.210 - Nicotine dependence, cigarettes, uncomplicated - AMA Did Patient Leave Against Medical Advice: No (F/U with PCP within 1-2 weeks)
== END 2018-10-27 08:12 | disposition home or self-care (01) | DRG 775 ==
LOC: YASAS 14:13 → Y3N 15:50
PROC: HZ2ZZZZ Detoxification Services for Substance Abuse Treatment (ICD-10-PCS; principal; 2018-10-23)
DX: F10.230 Alcohol dependence with withdrawal, uncomplicated (principal); F10.220 Alcohol dependence with intoxication, uncomplicated; F17.210 Nicotine dependence, cigarettes, uncomplicated; I10 Essential (primary) hypertension; E11.65 Type 2 diabetes mellitus with hyperglycemia; R79.89 Other specified abnormal findings of blood chemistry; D69.6 Thrombocytopenia, unspecified; B18.2 Chronic viral hepatitis C; Z85.46 Personal history of malignant neoplasm of prostate; Z79.84 Long term (current) use of oral hypoglycemic drugs; Z59.0 Homelessness
CPT/HCPCS: 36415; 80053; 82962; 84450; 85027; 86593

== ENCOUNTER 2020-08-30 12:10 | Inpatient (IN) | payer OTHER ==
[2020-08-30 13:54] VITALS: BMI 21.2
--- NOTE | 2020-08-30 15:28 | BHS.RME ---
2019 N Coronavirus Screen - COVID-19 Screening Questions Dx of COVID-19 or had a positive test in the last 4 weeks?: No Contact with known/suspected COVID patient in last 14 days?: No Any of these symptoms or contact with someone who has?: None Traveled domestically/internationally in the last 14 days?: No Screen score: 0 Screen result: Further Evaluation Substance Use & Tx History - Substance Use History Alcohol Substance amount: 2-3 pints Vodka Frequency of use: Daily Substance route: Oral Date of Last Use: 08/30/20 Cocaine-Crack Substance amount: $20 Frequency of use: Daily Substance route: Smoking Date of Last Use: 08/29/20 Nicotine Substance amount: one cig Frequency of use: Daily Substance route: Smoking Date of Last Use: 08/30/20 Physical/Psych/Mental Status - Behavior General Behavior: Decreased activity Eye Contact: Decreased - Cooperativeness Cooperativeness: Cooperative - Thinking Thought Processes: Tight Thought content: Future oriented - Physical Health Problems Is patient presently having any pain?: Yes (right sided rib area, [place], one week ago, bruised) Does patient presently have any injuries (include location): No Does patient currently have a fever: No CIWA Nausea/Vomitin-Mild Nausea/No Vomiting Muscle Tremors: 3 Anxiety: 3 Agitation: 3 Paroxysmal Sweats: 1-Minimal Palms Moist Orientation: 1-Uncertain about Date Tacttile Disturbances: 0-None Auditory Disturbances: 0-None Visual Disturbances: 0-None Headache: 0-None Present CIWA-Ar Total Score: 12
--- OUTSIDE RECORDS SUMMARY | 2020-08-30 17:23 | XMS ---
:1960 Author Organization [facility] Care Team Providers Name Role Phone Magda Corea Unavailable TIANA AGUDELO Unavailable Unavailable DOBOS, TERRI Unavailable Unavailable DARIO, CARLA Unavailable Unavailable SHELDON, MARLIN Unavailable Unavailable Lilli Ford Unavailable Viviana Breaux (R) Unavailable HERIBERTO Unavailable Unavailable Catrachito Unavailable Schiopu DDS Unavailable [ ] Schiopu DDS Unavailable [ ] Standefer Unavailable Unavailable Standefer Unavailable Unavailable Standefer Unavailable Unavailable Re-disclosure Warning The records that you are about to access may contain information from federally- assisted alcohol or drug abuse programs. If such information is present, then the following federally mandated warning applies: This information has been disclosed to you from records protected by federal confidentiality rules (42 CFR part 2). The federal rules prohibit you from making any further disclosure of this information unless further disclosure is expressly permitted by the written consent of the person to whom it pertains or as otherwise permitted by 42 CFR part 2. A general authorization for the release of medical or other information is NOT sufficient for this purpose. The Federal rules restrict any use of the information to criminally investigate or prosecute any alcohol or drug abuse patient.The records that you are about to access may contain highly sensitive health information, the redisclosure of which is protected by Article 27-F of the [place] State Public Health law. If you continue you may haveaccess to information: Regarding HIV / AIDS; Provided by facilities licensed or operated by the [facility] Office of Mental Health; or Provided by the [facility] Office for People With Developmental Disabilities. If such information is present, then the following [facility] mandated warning applies: This information has been disclosed to you from confidential records which are protected by state law. State law prohibits you from making any further disclosure of this information without the specific written consent of the person to whom it pertains, or as otherwise permitted by law. Any unauthorized further disclosure in violation of state law may result in a fine or longterm sentence or both. A general authorization for the release of medical or other information is NOT sufficient authorization for further disclosure. Allergies and Adverse Reactions Type Description Substance Reaction Status Data Source(s ) DRUG INGREDI LISINOPRIL LISINOPRIL The [facility] SYSTEMIC NO KNOWN ALLERGIES NO KNOWN ALLERGIES The [facility] Encounters Encounter Providers Location Date Indications Data Source(s ) Outpatient Attender: Viviana 08/12/2020 The [facility] Namita 03:26:46 PM [facility] EDT Patient admitted. Outpatient Attender: Lilli 07/20/2020 11:04:31 AM The [facility] Patient admitted. Outpatient Attender: Magda 06/25/2020 03:48:33 PM The [facility] 06/28/2020 Family ealt 09:37:29 AM EDT Patient admitted. Outpatient Attender: Maddy 06/21/2020 09:09:51 AM The [facility] Patient admitted. Outpatient Attender: Maddy 06/15/2020 09:38:41 AM The [facility] Patient admitted. Outpatient Attender: Susanne 06/11/2020 12:00:00 AM The [facility] Patient admitted. Outpatient Attender: Susanne 06/03/2020 09:52:29 AM The [facility] Patient admitted. Outpatient Attender: Patricia 05/17/2020 04:01:19 PM The [facility] Patient admitted. Outpatient Attender: Lilli 04/20/2020 02:00:08 PM The [facility] [place] EDT Family Health Patient admitted. Outpatient Attender: Lilli 04/14/2020 02:37:19 PM The [facility] Family Health Patient admitted. Outpatient Attender: Lilli 04/14/2020 10:03:38 AM The [facility] For [facility] ED Family Health Patient admitted. Outpatient Attender: TERRI BARDALES 04/13/2020 12:33:41 PM The [facility] For [facility] Family [facility] Patient admitted. Outpatient Attender: Lilli 04/08/2020 01:23:45 PM The [facility] Family [facility] Patient admitted. Outpatient Attender: Lilli 03/22/2020 11:40:59 AM [facility] Family H ealth 09:33:13 AM EDT Patient admitted. Outpatient Attender: Lilli 03/10/2020 12:01:33 PM The [facility] - 03/11/2020 Family H ealth 01:55:09 PM EDT Patient admitted. Outpatient Attender: CARLA BISHOP 03/10/2020 10:40:12 AM The [facility] Patient admitted. Outpatient Attender: Lilli 03/03/2020 02:38:16 PM The [facility] Family [facility] Patient admitted. Outpatient Attender: Lilli 02/05/2020 08:57:06 AM The [facility] Patient admitted. Outpatient Attender: CARLEEN SHELDON 01/29/2020 05:05:24 PM The [facility] For [facility] Patient admitted. Outpatient Attender: CARLEEN SHELDON 01/29/2020 03:40:31 PM The [facility] Patient admitted. Outpatient Attender: Lilli 01/29/2020 10:58:48 AM The [facility] Family [facility] Patient admitted. Outpatient Attender: Lilli 01/28/2020 03:32:07 PM The [facility] Family [facility] Patient admitted. Outpatient Attender: CRISTINO LOUIS 01/02/2020 11:19:46 AM The [facility] Patient admitted. Outpatient Attender: CARLEEN SHELDON 01/02/2020 11:18:08 AM The [facility] EST - 01/02/2020 Family H ealth 02:43:07 PM EST Patient admitted. Outpatient Attender: Lilli 01/02/2020 09:53:11 AM The [facility] - 01/02/2020 Family H ealth 02:49:22 PM EST Patient admitted. Outpatient Attender: TIANA JAMMIE 12/26/2019 03:31:[address] [facility] [place] [place]. Outpatient Attender: Lilli 12/11/2019 10:09:02 AM The [facility] - 12/11/2019 [facility] H ealth 06:05:46 PM EST Patient admitted. Outpatient Attender: CRISTINO LUJANES 11/13/2019 11:22:[address] [facility] [place] Patient admitted. Outpatient Attender: Lilli 11/13/2019 10:02:43 AM The [facility] - 11/13/2019 [facility] H ealth 04:59:42 PM EST Patient admitted. Immunizations Vaccine Date Status Description Data Source(s) Tdap 11/13/2019 completed Tdap 11/13/2019 The Inst itute 12:00:00 AM EST For [facility] Health Influenza, 11/13/2019 completed Influenza, 11/13/2019 The In stitute injectable, MDCK, 12:00:00 AM EST Injectable,(cciiv For Family preservative 4), Quadrivalent, Health free, Preservative Free quadrivalent Medications Medication Brand Start Product Dose Route Administrative Pharmacy [facility] Indications Reaction Description Data Name Date Form Instructions Instructions Source(s) Amlodipine amLODI 10 mg Oral active Essential Ta ke ONE The 10 MG Oral [place] 2020 hypertension tablet (10 [facility] Tablet 10 MG 12:00: mg total) by Fo r Family amLODIPine Oral 00 AM mouth daily H ealth 10 MG Oral tablet EDT tablet Essential hypertension Thiamine thiamine 06/28/2020 100 Oral active Essential Take The 100 MG 100 MG 12:00:00 AM mg hypertension O NE [facility] Oral Oral EDT tablet For Family Tablet tablet (100 mg Health thiamine total) 100 MG by Oral mouth tablet daily Essential hypertension Multiple Vitamin 06500-812-85 06/28/2020 1 Oral active Es sential Take The (MULTI-VITAMIN) 12:00:00 AM {tbl} hypertensio n ONE [facility] Oral tablet EDT tablet For [place] walker by Health mouth daily Essential hypertension Amlodipine amLODIPine 06/28/2020 10 Oral aborted Essential Take The 10 MG Oral 10 MG Oral 12:00:00 AM mg hypertensio n ONE [facility] Tablet tablet EDT tablet For Famil y amLODIPine (10 mg Health 10 MG Oral total) tablet by mouth daily Essential hypertension Losartan Losartan 06/28/2020 25 Oral active Essential Take The Potassium Potassium 12:00:00 AM mg hypertension ONE [facility] 25 MG Oral 25 MG Oral EDT tablet F or Family Tablet Tab (25 mg Health total) by mouth daily Essential hypertension Metformin metFORMIN 06/28/2020 500 Oral active Type 2 Take The hydrochloride HCl 500 MG 12:00:00 AM mg diabetes ONE [facility] 500 MG Oral Oral Tab EDT mellitus table t For Family Tablet treated (500 mg Health metFORMIN HCl without total) 500 MG Oral Tab insulin by (HCC) mouth 2 (two) times a day Type 2 diabetes mellitus treated without insulin ([facility]) Metformin metFORMIN 06/21/2020 500 Oral aborted Type 2 Take The hydrochloride HCl 500 MG 12:00:00 AM mg diabetes ONE [facility] 500 MG Oral Oral Tab EDT mellitus table t For Family Tablet treated (500 mg Health metFORMIN HCl without total) 500 MG Oral Tab insulin by (HCC) mouth 2 (two) times a day Type 2 diabetes mellitus treated without insulin ([facility]) Losartan Losartan 06/21/2020 25 Oral aborted Essential Take The Potassium Potassium 12:00:00 AM mg hypertension ONE [facility] 25 MG Oral 25 MG Oral EDT tablet F or Family Tablet Tab (25 mg Health total) by mouth daily Essential hypertension Amlodipine amLODIPine 06/21/2020 10 Oral aborted Essential Take The 10 MG Oral 10 MG Oral 12:00:00 AM mg hypertensio n ONE [facility] Tablet tablet EDT tablet For Famil y amLODIPine (10 mg Health 10 MG Oral total) tablet by mouth daily Essential hypertension Thiamine 100 thiamine 05/22/2020 100 Oral aborted Take The MG Oral 100 MG Oral 12:00:00 AM mg 100 mg [facility] Tablet tablet EDT by For Family thiamine 100 mouth Health MG Oral tablet Multiple 82060-768-2 05/20/2020 1 Oral aborted Take 1 The Vitamin 4 12:00:00 AM {tbl tablet Ins titute (MULTI-VITAM EDT } by For Fam patt IN) Oral mouth Health tablet Amlodipine amLODIPine 04/21/2020 10 Oral aborted Essential Take The 10 MG Oral 10 MG Oral 12:00:00 AM mg hypertensio n ONE [facility] Tablet tablet EDT tablet For Famil y amLODIPine (10 mg Health 10 MG Oral total) tablet by mouth daily Essential hypertension Take ONE tablet (10 mg total) by mouth d aily Metformin metFORMIN 04/21/2020 500 Oral aborted Type 2 Take The hydrochloride HCl 500 MG 12:00:00 AM mg diabetes ONE [facility] 500 MG Oral Oral Tab EDT mellitus table t For Family Tablet treated (500 mg Health metFORMIN HCl without total) 500 MG Oral Tab insulin by ([facility]) mouth 2 (two) times a day Type 2 diabetes mellitus treated without insulin ([facility]) Take ONE tablet (500 mg total) by mouth 2 (two) times a day Losartan Losartan 04/21/2020 25 Oral aborted Essential Take The Potassium Potassium 12:00:00 AM mg hypertension ONE [facility] 25 MG Oral 25 MG Oral EDT tablet F or Family Tablet Tab (25 mg Health total) by mouth daily Essential hypertension Take ONE tablet (25 mg total) by mouth d aily Azelastine 50257-258-42 04/09/2020 1 Nasal active Recurre nt 1 spray The HCl 0.15 % 12:00:00 AM {spray} dry cough into [facility] Nasal EDT each For Family Solution nostril Health daily as needed for cough Recurrent dry cough 1 spray into each nostril daily as neede d for cough benzonatate Benzonatate 04/09/2020 200 Oral aborted Recurre nt Take ONE The 200 MG Oral 200 MG Oral 12:00:00 AM mg dry cough capsule [facility] Capsule Cap EDT (200 mg For Famil y Benzonatate total) Health 200 MG Oral by mouth Cap 3 (three) times a day as needed for cough for up to 14 days Recurrent dry cough Take ONE capsule (200 mg total) by mouth 3 (three) times a day as needed for cough for up to 14 days Metformin metFORMIN 03/11/2020 500 Oral completed Type 2 Take The hydrochloride HCl 500 MG 12:00:00 AM mg diabetes ONE [facility] 500 MG Oral Oral Tab EDT mellitus table t For Family Tablet treated (500 mg Health metFORMIN HCl without total) 500 MG Oral Tab insulin by ([facility]) mouth 2 (two) times a day Type 2 diabetes mellitus treated without insulin ([facility]) Take ONE tablet (500 mg total) by mouth 2 (two) times a day Amlodipine amLODIPine 03/11/2020 10 Oral completed Essenti al Take The 10 MG Oral 10 MG Oral 12:00:00 AM mg hypertensio n ONE [facility] Tablet tablet EDT tablet For Famil y amLODIPine (10 mg Health 10 MG Oral total) tablet by mouth daily Essential hypertension Take ONE tablet (10 mg total) by mouth d aily Losartan Losartan 03/11/2020 25 Oral completed Essential Take The Potassium Potassium 12:00:00 AM mg hypertension ONE [facility] 25 MG Oral 25 MG Oral EDT tablet F or Family Tablet Tab (25 mg Health total) by mouth daily Essential hypertension Take ONE tablet (25 mg total) by mouth d aily benzonatate Benzonatate 03/11/2020 200 Oral completed Recur rent Take ONE The 200 MG Oral 200 MG Oral 12:00:00 AM mg dry cough capsule [facility] Capsule Cap EDT (200 mg For Famil y Benzonatate total) Health 200 MG Oral by mouth Cap 3 (three) times a day as needed for cough for up to 14 days Recurrent dry cough Take ONE capsule (200 mg total) by mouth 3 (three) times a day as needed for cough for up to 14 days Azelastine 14123-230-41 03/11/2020 1 Nasal completed Recu rrent 1 spray The HCl 0.15 % 12:00:00 AM {spray} dry cough into [facility] Nasal EDT each For Family Solution nostril Health daily as needed for cough Recurrent dry cough 1 spray into each nostril daily as neede d for cough Metformin metFORMIN 01/28/2020 500 Oral completed Type 2 Take The hydrochloride HCl 500 MG 12:00:00 AM mg diabetes ONE [facility] 500 MG Oral Oral Tab EDT mellitus table t For Family Tablet treated (500 mg Health metFORMIN HCl without total) 500 MG Oral Tab insulin by (HCC) mouth 2 (two) times a day Type 2 diabetes mellitus treated without insulin (HCC) Take ONE tablet (500 mg total) by mouth 2 (two) times a day Amlodipine amLODIPine 01/28/2020 10 Oral completed Essenti al Take The 10 MG Oral 10 MG Oral 12:00:00 AM mg hypertensio n ONE [facility] Tablet tablet EDT tablet For Famil y amLODIPine (10 mg Health 10 MG Oral total) tablet by mouth daily Essential hypertension Take ONE tablet (10 mg total) by mouth d aily Losartan Losartan 01/28/2020 25 Oral completed History of Take The Potassium Potassium 12:00:00 AM mg hepatitis ONE [facility] 25 MG Oral 25 MG Oral EDT C tablet F or Family Tablet Tab (25 mg Health total) by mouth daily History of hepatitis C Take ONE tablet (25 mg total) by mouth d aily Metformin metFORMIN 12/26/2019 500 Oral completed Type 2 Take The hydrochloride HCl 500 MG 12:00:00 AM mg diabetes ONE [facility] 500 MG Oral Oral Tab EST mellitus table t For Family Tablet treated (500 mg Health metFORMIN HCl without total) 500 MG Oral Tab insulin by (HCC) mouth 2 (two) times a day Type 2 diabetes mellitus treated without insulin (HCC) Take ONE tablet (500 mg total) by mouth 2 (two) times a day FLUTICASONE [id number] 12/11/2019 50 Nasal active Recurr ent ONE Act The PROPIONATE, 12:00:00 AM ug dry cough ( 50 mcg [facility] NASAL, 50 EST total) For Fami ly MCG/ACT Nasal into Health Suspension each nostril 2 (two) times a day Recurrent dry cough ONE Act (50 mcg total) into each nostril 2 (two) times a day Losartan Losartan 12/11/2019 25 Oral completed History of Take The Potassium Potassium 12:00:00 AM mg hepatitis ONE [facility] 25 MG Oral 25 MG Oral EST C tablet F or Family Tablet Tab (25 mg Health total) by mouth daily History of hepatitis C Take ONE tablet (25 mg total) by mouth d aily Blood [id number] 11/13/2019 active Essential For at home The Pressure 12:00:00 AM hypertension m onitoring [facility] Monitor EST For Family Does not Health apply Kit Essential hypertension For at home monitoring Amlodipine amLODIPine 11/13/2019 10 Oral completed Essenti al Take The 10 MG Oral 10 MG Oral 12:00:00 AM mg hypertensio n ONE [facility] Tablet tablet EST tablet For Famil y amLODIPine (10 mg Health 10 MG Oral total) tablet by mouth daily Essential hypertension Take ONE tablet (10 mg total) by mouth d aily Metformin metFORMIN 11/13/2019 500 Oral completed Type 2 Take The hydrochloride HCl 500 MG 12:00:00 AM mg diabetes ONE [facility] 500 MG Oral Oral Tab EST mellitus table t For Family Tablet treated (500 mg Health metFORMIN HCl without total) 500 MG Oral Tab insulin by (HCC) mouth 2 (two) times a day Type 2 diabetes mellitus treated without insulin (HCC) Take ONE tablet (500 mg total) by mouth 2 (two) times a day benzonatate benzonatate 11/13/2019 100 Oral completed Viral Take ONE The 100 MG Oral 100 MG Oral 12:00:00 AM mg URI capsule [facility] Capsule capsule EST with (100 mg For Fa denise benzonatate cough total) Healt h 100 MG Oral by mouth capsule 3 (three) times a day as needed for cough for up to 7 days Viral URI with cough Take ONE capsule (100 mg total) by mouth 3 (three) times a day as needed for cough for up to 7 days Amlodipine 10 amLODIPine 10 10/24/2018 completed Norvasc - The MG Oral MG Oral 12:00:00 AM In stitute Tablet tablet EST For Family amLODIPine 10 Health MG Oral tablet Norvasc - Metformin metFORMIN 10/23/2018 completed Glucophage The hydrochloride HCl 500 MG 12:00:00 AM [facility] 500 MG Oral Oral Tab EST For Family Tablet metFORMIN Hea lth HCl 500 MG Oral Tab Glucophage Lisinopril 20 lisinopril 20 10/29/2013 completed Prinivil - The MG Oral MG Oral 12:00:00 AM In stitute Tablet tablet EST For Family lisinopril 20 Health MG Oral tablet Prinivil - Insurance Providers Payer name Policy type Policy ID Covered Covered constitution party's Policy P denia / Coverage constitution party ID relationship to [place] Inf ormation type [employer] [id number] SP [id number] [facility] Medicaid Mgd 156 [id number] [facility] Medicaid Mgd [id number] [facility] [id number] Self [id number] [facility] [id number] Self [id number] Problems, Conditions, and Diagnoses Code Display Name Description Problem Type Effective Data Dates Source(s) Z00.00 Routine adult health Routine adult health [id number] 03/11 The maintenance maintenance 12:00:00 AM [facility] EDT [employer] R05 Recurrent dry cough Recurrent dry cough [id number] [facility] [employer] F10.10 Alcohol use Alcohol use [id number] 12/15/2019 The disorder, mild, disorder, mild, 12:00:00 AM Ins titute abuse abuse [facility] [employer] Z86.19 History of hepatitis History of hepatitis [id number] 12/15 The C C 12:00:00 AM [facility] [employer] E11.9 Type 2 diabetes Type 2 diabetes [id number] 11/13/2019 The mellitus treated mellitus treated 12:00:00 AM I nstitute without insulin without insulin EST For [facility] I10 Hypertension, Hypertension, [id number] 11/13/2019 The essential essential 12:00:00 AM [facility] EST For [facility] F17.200 Tobacco use disorder Tobacco use disorder [id number] 11/13 The 12:00:00 AM [facility] EST For [facility] I10 Essential (primary) Essential (primary) Diagnosis 020 The hypertension hypertension 11:04:31 AM [facility] EDT For [facility] Z53.20 Procedure and Procedure and Diagnosis 06/21/2020 The treatment not treatment not 09:09:51 AM Institu te carried out because carried out because EDT For Family of patient's of patient s Health decision for decision for unspecified reasons unspecified reasons Dental Appliance Dental Appliance Diagnosis 06/11/2020 Th e 12:00:00 AM [facility] EDT For [facility] Denture Denture Diagnosis 06/03/2020 The 09:52:29 AM [facility] EDT For [facility] F43.21 Adjustment disorder Adjustment disorder Diagnosis The with depressed mood with depressed mood 02:00:0 8 PM [facility] EDT For [facility] F10.20 Alcohol dependence, Alcohol dependence, Diagnosis The uncomplicated uncomplicated 02:00:08 PM Institu te EDT For [facility] Failed Tele Attempt Failed Tele Attempt Diagnosis The (Failed Telehealth (Failed Telehealth 02:37:19 PM [facility] Attempt) Attempt) EDT For [facility] Hospital Discharge Hospital Discharge Diagnosis 0 The Outreach Outreach 12:33:41 PM [facility] EDT For [facility] H53.459 Other localized Other localized Diagnosis 03/22/2020 The visual field defect, visual field defect, 11:40 :59 AM [facility] unspecified eye unspecified eye EDT For [facility] F10.10 Alcohol abuse, Alcohol abuse, Diagnosis 03/11/2020 The uncomplicated uncomplicated 02:17:16 PM Institu te EDT For [facility] E11.9 Type 2 diabetes Type 2 diabetes Diagnosis 03/11/2020 The mellitus without mellitus without 02:17:10 PM I nstitute complications complications EDT For [facility] F17.200 Nicotine dependence, Nicotine dependence, Diagnosis 03/11 The unspecified, unspecified, 02:17:04 PM [facility] uncomplicated uncomplicated EDT For [facility] R05 Cough Cough Diagnosis 03/11/2020 The 01:54:56 PM [facility] EDT For [facility] Z71.89 Other specified Other specified Diagnosis 03/10/2020 The counseling counseling 12:01:33 PM [facility] EDT For [facility] Refill Request Refill Request Diagnosis 03/10/2020 The 10:40:12 AM [facility] EDT For [facility] Erroneous Erroneous Diagnosis 03/03/2020 The encounter-disregard encounter-disregard 02:38:1 6 PM [facility] EDT For [facility] K74.0 Hepatic fibrosis Hepatic fibrosis Diagnosis 02/05/2020 Th e 08:57:06 AM [facility] EDT For [facility] Outreach Diabetes Outreach Diabetes Diagnosis 01/29/2020 The F/u F/u 05:05:24 PM [facility] EDT For [facility] Care Management Care Management Diagnosis 01/02/2020 The Transportation Transportation 11:19:46 AM [facility] tute Assistance Assistance EST For [facility] R10.9 Unspecified Unspecified Diagnosis 01/02/2020 The abdominal pain abdominal pain 09:53:[facility] Z86.19 Personal history of Personal history of Diagnosis 020 The other infectious and other infectious and 01:58 :25 PM [facility] parasitic diseases parasitic diseases EST For [facility] Z11.59 Encounter for Encounter for Diagnosis 12/11/2019 The screening for other screening for other 10:09:0 2 AM [facility] viral diseases viral diseases EST For [facility] Z13.220 Encounter for Encounter for Diagnosis 12/11/2019 The screening for lipoid screening for lipoid 10:09 :02 AM [facility] disorders disorders EST For [facility] J30.2 Other seasonal Other seasonal Diagnosis 12/11/2019 The allergic rhinitis allergic rhinitis 10:09:02 AM [facility] EST For [facility] Z65.8 Other specified Other specified Diagnosis 11/13/2019 The problems related to problems related to 11:22:3 3 AM [facility] psychosocial psychosocial EST For Family circumstances circumstances Health Z11.4 Encounter for Encounter for Diagnosis 11/13/2019 The screening for human screening for human 10:02:4 3 AM [facility] immunodeficiency immunodeficiency EST Fo r Family virus [HIV] virus (HIV) Health Z12.11 Encounter for Encounter for Diagnosis 11/13/2019 The screening for screening for 10:02:43 AM Institu te malignant neoplasm malignant neoplasm EST For Family of colon of colon [facility] Z23 Encounter for Encounter for Diagnosis 11/13/2019 The immunization immunization 10:02:43 AM [place] [facility] EST [facility] B97.89 Other viral agents Other viral agents Diagnosis 0 The as the cause of as the cause of 10:02:43 AM Ins titute diseases classified diseases classified EST For Family elsewhere elsewhere Health J06.9 Acute upper Acute upper Diagnosis 11/13/2019 The respiratory respiratory 10:02:43 AM [facility] infection, infection, EST For Family unspecified unspecified Health Cough Cough Diagnosis 11/13/2019 The 10:02:43 AM [place] [facility] EST For [facility] Well Exam Well Exam Diagnosis 11/13/2019 The 10:02:43 AM [facility] EST [facility] Surgeries/Procedures Procedure Description Date Indications Data Source(s) Max REBASE Max REBASE Routine 06/11/2020 06/11/2020 The COMPLETE COMPLETE 1:00 PM EDT 01:00:00 PM [facility] MAXILLARY MAXILLARY EDT [facility] INSERT INSERT LTD ORAL LTD ORAL Routine 06/03/2020 06/03/2020 The EVALUATION - EVALUATION - 9:15 AM EDT 09:15:00 A M [facility] PROBLEM FOCUS PROBLEM FOCUS EDT For [facility] PANORAMIC PANORAMIC Routine 06/03/2020 06/03/2020 The RADIOGRAPHIC RADIOGRAPHIC 9:15 AM EDT 09:15:00 A M [facility] IMAGE IMAGE EDT For [facility] Max COMPLETE Max COMPLETE Routine 06/03/2020 06/03/2020 The DENTURE DENTURE 12:00 AM 12:00:00 AM Ins titute EDT EDT For [facility] MARY ANN REPORTING MARY ANN REPORTING Routine 03/11/2020 History 0 History The FORM NOT FORM NOT 2:22 PM EDT of 02:22:40 PM of [facility] NEEDED-OLD NEEDED-OLD hepatitis EDT hepatiti s For Family DIAGNOSIS DIAGNOSIS C C Heal th History of hepatitis C RANDOM RANDOM Routine 01/02/2020 Type 2 01/02/2020 Type 2 polly betes The GLUCOSE GLUCOSE 11:24 AM diabetes 11:24:00 AM mellitus w [facility] IN HOUSE IN HOUSE EST mellitus EST complications Type For Family treated 2 diabetes Healt h without mellitus treated insulin (HCC) without insulin Type 2 (HCC) diabetes mellitus without complications Type 2 diabetes mellitus without complic ations Type 2 diabetes mellitus treated without insulin (HCC) RANDOM RANDOM Routine 01/02/2020 Type 2 01/02/2020 Type 2 Th e GLUCOSE IN GLUCOSE IN 10:11 AM EST diabetes 10:11:00 AM diabetes [facility] HOUSE HOUSE mellitus EST mellitus For [place]o walker treated treated Health without without insulin insulin (HCC) (HCC) Type 2 diabetes mellitus treated without insulin (HCC) 4TH GEN HIV 4TH GEN HIV Routine 12/11/2019 Encounter 12/11/2019 Encounter The TEST-IFH TEST-IFH 11:42 AM for 11:42:00 AM for I nstitute RECOMMENDED RECOMMENDED EST screening EST screen ing For Family for HIV for HIV Health Encounter for screening for HIV LIPID LIPID Routine 12/11/2019 Screening 12/11/2019 Screenin g The PANEL PANEL 11:42 AM EST for lipid 11:42:00 AM for l ipid [facility] disorders EST disorders For Family Health Screening for lipid disorders HEP C HEP C Routine 12/11/2019 History of 12/11/2019 History of The FIBROSURE/FIBROTEST/ACTITEST FIBROSURE/FIBROTEST/ACTITEST 11 :42 AM hepatitis 11:42:00 AM hepatitis [facility] EST C EST C For Fami ly Health History of hepatitis C COMP COMP Routine 12/11/2019 Hypertension, 12/11/2019 Hype rtension, The METABOLIC METABOLIC 11:42 AM essential 11:42:00 AM [facility] PANEL PANEL EST EST For Fami ly Health Hypertension, essential HEPATITIS C HEPATITIS C Routine 12/11/2019 Screening 12/11/2019 Screening The ANTIBODY W/ ANTIBODY W/ 11:42 AM EST for viral 11:42:00 AM for viral [facility] REFLEX RT REFLEX RT disease EST disease For Family PCR PCR Health (REQUIRES 2 (REQUIRES 2 VIALS) VIALS) Screening for viral disease FECAL GLOBIN BY FECAL GLOBIN BY Routine 12/11/2019 Special 12/11 Special The IMMUNOCHEMISTRY IMMUNOCHEMISTRY 11:42 AM screening 11:42 :00 AM screening [facility] EST for EST for For Fami ly malignant malignant Heal th neoplasms, neoplasms, colon colon Special screening for malignant neoplasm s, colon HGB HGB Routine 12/11/2019 Type 2 12/11/2019 Type 2 polly betes The A1C IN A1C IN 11:14 AM diabetes 11:14:00 AM mellitus w [facility] HOUSE HOUSE EST mellitus EST complicationsTy pe For Family treated 2 diabetes Healt h without mellitus treated insulin (HCC) without insulin Type 2 (HCC) diabetes mellitus without complications Type 2 diabetes mellitus without complic ations Type 2 diabetes mellitus treated without insulin (HCC) RANDOM RANDOM Routine 12/11/2019 Type 2 12/11/2019 Type 2 polly betes The GLUCOSE GLUCOSE 10:59 AM diabetes 10:59:00 AM mellitus w [facility] IN HOUSE IN HOUSE EST mellitus EST complications Type For Family treated 2 diabetes Healt h without mellitus treated insulin (HCC) without insulin Type 2 (HCC) diabetes mellitus without complications Type 2 diabetes mellitus without complic ations Type 2 diabetes mellitus treated without insulin ([facility]) MICROALBUMIN/CREAT MICROALBUMIN/CREAT Routine 11/13/2019 Type 2 11/13/2019 Type 2 The RATIO (URINE RATIO (URINE 2:04 PM EST diabetes 02:04:00 PM diabetes [facility] RANDOM) RANDOM) mellitus EST mellitus For Fa denise treated treated Health without without insulin insulin (HCC) (HCC) Type 2 diabetes mellitus treated without insulin ([facility]) RANDOM RANDOM Routine 11/13/2019 Need for prophylactic 020 Encounter for The GLUCOSE GLUCOSE 11:19 AM vaccination and 11:19:00 [facility] inoculation against EST fo r prophylactic For Family influenza vaccination and Health Encounter for inoculatio n immunization against inf luenza Encounter for immunization Need for prophylactic vaccination and in oculation against influenza TDAP TDAP Routine 11/13/2019 Need for prophylactic 020 Need for prophylactic The VACCINE VACCINE 11:17 AM vaccination with combined 11:17 :57 AM vaccination with combined [facility] 7/> YR SQ IMM EST axokbthydi-qipdwrq-fzcuwperr EST aqrtqvqujf-rlcweya-qtasjtaky For Family IM CLINIC (DTP) vaccine (DTP) vacc ine Health Need for prophylactic vaccination with c ombined geiussnfyy-tofgmkf-uneywdexc (DTP) vaccine FLUCELVAX, FLUCELVAX, Routine 11/13/2019 Need for 11/13/2019 Nee d for The INFLUENZA, INFLUENZA, 11:17 AM prophylactic 11:17:57 AM prophylactic [facility] CCIIV4, CCIIV4, EST vaccination EST vaccination For Family PSRV FREE, PSRV FREE, and and He alth 4YRS+, 0.5 4YRS+, 0.5 inoculation inocul ation ML, ML, against against PREFILLED PREFILLED influenza influenza SYRINGE SYRINGE Need for prophylactic vaccination and in oculation against influenza FOOT FOOT Routine 11/13/2019 Type 2 11/13/2019 Type 2 Th e EXAMINATION EXAMINATION diabetes 12:00:00 AM [facility] PERFORMED PERFORMED mellitus EST mellitus Fo r Family treated treated Health without without insulin insulin (HCC) (HCC) Type 2 diabetes mellitus treated without insulin (HCC) ECG-ROUTINE <td><content ID=" name">ECG-ROUTINE W/12 LEADS; W/INTERPT & 11/13/2019 Essential The W/12 LEADS; REP*</content></td><td>Routine</td><td>11/13/2019</td><td><paragraph>Essential 12:00:00 AM hypertension [facility] W/INTERPT & hypertension</paragraph></td ><td><paragraph styleCode="header">Results for this EST For Family REP* procedure are in the <content styleCode="xLink2-Result [id number]">results Health section</content>.</paragraph></td> Essential hypertension Results ID Date Data Source [id number] 06/12/2020 11:46:00 AM EDT The [facility] Reason for Visit and Comments: Dental Appliance [1450] - repair upper dentureSSusanne lawson DDS 06/12/2020 1 1:45 AM SignedI have identified this patient to be Leonardo ELEANOR Nunes -1960.N o chief complaint on file.There were no vitals filed for this visit.HPIThe follo wing portions of the patient s chart were reviewed in this encounterand updated as appropriate: Tobacco | Allergies | Meds | Med Hx | Surg Hx | FamHx | Soc HxProcedu res performed today:Dental procedures in this visit D5710 - REBASE COMPLETE MAXILLARY DENTURE INSERT Max (Completed) Service provider: Susanne Brown DDS Billing provider: Susanne Brown DDSDENTURE DELIVERYI have identified this patient t o be Leonardo QuiñonesELEANOR ravi -1960.Patient informed and consented to treatmentDeliv raghav of upper Repaired dentures.Occlusion checked in [place] [facility]; Adjusted.P atient states he is very happy and comfortable with his dentures: yesNext v isit: Follow up for any adjustment needed.Start complete upper and lower de nturesPrescriptions as of 06/12/2020 Disp Refills Start End amL ODIPine 10 MG Oral tablet 30 t* 2 04/21/2020 07/20/2020 Class: E Pr escribing Route: Oral Sig: Take ONE tablet (10 mg total) by mouth daily A zelastine HCl 0.15 % Nasal Soluti* 30 mL 2 04/09/2020 Class: E Prescribin g Route: Nasal Si spray into each nostril daily as needed for cough Rehan zonatate 200 MG Oral Cap 42 c* 0 04/09/2020 04/23/2020 Class: E P rescribing Route: Oral Sig: Take ONE capsule (200 mg total) by mouth 3 (three ) times a day as needed for cough for up to 14 days Blood Pressure Monitor Does not ap* 1 kit 0 11/13/2019 Class: E Prescribing Sig: For at home monitoring FLUTICASONE PROPIONATE, NASAL, 50 * 1 Carroll* 3 12/11/2019 Cla ss: E Prescribing Route: Nasal Sig: ONE Act (50 mcg total) into each nostril 2 ( two) times a day Losartan Potassium 25 MG Oral Tab 30 t* 2 04/21/2020 Class: E Prescribing Route: Oral Sig: Take ONE tablet (25 mg total) by mo uth daily metFORMIN HCl 500 MG Oral Tab 60 t* 2 04/21/2020 Class : E Prescribing Route: Oral Sig: Take ONE tablet (500 mg total) by mouth 2 (tw o) times a dayAllergies As of Date: 06/11/2020 Noted Allergy Reaction LISINOPRIL 11/13/2019 3 - Swelling Comments: Lip swelling Date Reviewed: 06/03/2020Reviewed by: Susanne Brown DDS - Reviewed Historical Information ----- ------Past Medical and Surgical HistoryM edical And Surgical History Item DateDiabetes mellitus, type II (HCC)Hype rtensionHX CHOLECYSTECTOMY 2012Family History Problem Relation Age of Onset Negative History Mother Negative History FatherFamily Status - Relation Status Age at Mother Dece ased Father DeceasedSocial History Marital Status: Spouse: Years of Education: # children: Social History Narrative 12/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 [facility] by stacey rodriguez workkelsey kim 8 yrs Living at the [place] Daughter 39 y/o, 3 grandkids to 40 yea rsSocial History Topics Tobacco Use: Yes Start Date: Comment: 1 daily q 3 days , on and off since age 13 Alcohol Use: Yes 1.2 oz/week 2 Cans of beer pe r week Drug Use: Not Currently Sexually Active: Yes Partners wit h: Female Control/Protection: Condom, none of the timeImmunizations Administered Influenza, Injectable,(cciiv4), Qu* Tdap 11/13/2019 Name Value Range Interpretation Code Description Data Mattie rce(s) Supporting Document(s ) ID Date Data Source [id number] 06/04/2020 10:22:29 AM EDT The [facility] Reason for Visit and Comments: Dentur e [1457] - UA denture broke in half, wants them fixed but is worriedthey will take long to com e back and he does not want to be without any teethVitals (Last Filed):BP 138/94 (Orth ostatic Site : Arm - Right, Orthostatic Po- sition : Sitting, Orthostatic Cuf f Size : Adult) Pulse - 73 Temp 90.9 F (32.7 C) (Oral)Susanne Brown DDS 06/03/2020 11:18 AM SignedDental procedures in this visit D0140 - LTD ORAL EVALUATION - PROBLEM FOCUS (Completed) Service provider: Susanne Brown DDS Billing provider: Susanen Brown DDS D0330 - PANORAMIC RADIOGRAPHIC IMAGE (Completed) Service provider: Susanne Brown DDS Billing provider: Susanne Brown DDSSubjectiveI have identified this grover ent to be ELEANOR Schmidt -1960.Chief ComplaintPatient presents with Denture UA denture broke in half, wants them fixed but is worried they will take longto come back and he does not want to be without any teethHPIThe following portions of the patient s mara t were reviewed in this encounterand updated as appropriate: Tobacco | Allergies | Meds | Med Hx | Surg Hx | FamHx | Soc Hx .ObjectiveDental Soft Tissue ExamRadiographic Interpretat ion:Associated radiographs for today s visit were reviewed and finding(s) werediscussed wi th the patient.Findings include: No findings, 1 Pop taken fully edentulous maxilla andmandib leNext VisitRepaired complete upper denture deliveryMiherman Brown DDS discussed f indings associated with the patient speriodontal and caries status.Reference tooth chart for additional findings.Assessment & Plan pt presents w/ CC "I dropped my denture on the floor and i tbroke in half "Complete upper denture - fractured base - midline/ no missing piecesPt will also like to get a new set of denturePt will return for pick up man repaired denture and start FUD/F LD upon approvalPrescriptions as of 06/04/2020 Disp Refills Start End amL ODIPine 10 MG Oral tablet 30 t* 2 04/21/2020 07/20/2020 Class: E Prescrib ing Route: Oral Sig: Take ONE tablet (10 mg total) by mouth daily Azelastine HCl 0.15 % Nasal Soluti* 30 mL 2 04/09/2020 Class: E Prescribing Route: Nasal Si sp ray into each nostril daily as needed for cough Benzonatate 200 MG Oral Cap 42 c * 0 04/09/2020 04/23/2020 Class: E Prescribing Route: Oral Sig: Take ONE capsule (200 mg total) by mouth 3 (three) times a day as needed for cough for up t o 14 days Blood Pressure Monitor Does not ap* 1 kit 0 11/13/2019 Class: E Prescrib ing Sig: For at home monitoring FLUTICASONE PROPIONATE, NASAL, 50 * 1 Carroll* 3 12/11/2019 Class: E Prescribing Route: Nasal Sig: ONE Act (50 mcg total) into each no stril 2 (two) times a day Losartan Potassium 25 MG Oral Tab 30 t* 2 04/21/2020 Class: E Prescribing Route: Oral Sig: Take ONE tablet (25 mg total) by mouth daily m etFORMIN HCl 500 MG Oral Tab 60 t* 2 04/21/2020 Class: E Prescribing Rou te: Oral Sig: Take ONE tablet (500 mg total) by mouth 2 (two) times a dayAllergies As of Date: 06/03/2020 Noted Allergy ReactionLISINOPRIL 11/13/2019 3 - Lyndsay woodson Comments: Lip swellingDate Reviewed: 06/03/2020Reviewed by: Susanne Brown DDS - Reviewed Historical Information Past Medical and Surgical HistoryMedical And Surgical History Item DateDiabetes mellitus, type II (HCC)HypertensionHX CHOLECYSTECTOMY 2011Family History Problem Relation Age of Onset Negative History Mother Negative History FatherF amily Status - Relation Status Age at Mother Father DeceasedSocial History Marital Status: Spouse: Years of Education: # children: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, hasn t worked 8 yrs Living at the [facility] Daughter 39 y/o, 3 grandkids to 40 yearsSocial History Topics Tobacco Use: Yes Start Date: Comment: 1 daily q 3 days, on and off since age 13 Alcohol Use: Yes 1.2 oz/week 2 Cans of beer per week Drug Use: Not Currently Sexually Active: Yes Partners with: Female Control/Protection: Condom, none of the timeImmunizations Administered Influenza, Injectable,(cciiv4), Qu* 0 11/13/2019 Tdap 11/13/2019 Name Value Range Interpretation Code Description Data Mattie rce(s) Supporting Document(s ) ID Date Data Source [id number] 05/18/2020 01:22:00 PM EDT [facility] Name Value Range Interpretation Code Description Data Mattie rce(s) Supporting Document(s ) SARS-CoV-2 [facility] Ql MAMADOU+probe This lab was ordered by [facility] a nd reported by [facility]. ID Date Data Source [id number] 02/24/2020 11:51:00 AM EDT [facility] Name Value Range Interpretation Code Description Data Mattie rce(s) Supporting Document(s ) SARS-COV-2 [facility] PCR This lab was ordered by DANIELA BOLANOS 1 and r eported by [facility]. ID Date Data Source [id number] 01/02/2020 02:49:22 PM EST [facility] Reason for Visit and Comments: Follow -up for: [92] Forms [188]Vitals (Last Filed):BP 138/86 Pulse 67 Temp 97.4 F (36.3 C) (Oral) Ht- 6 (1.829 m) Wt 151 lb (68.5 kg) SpO2 100% BMI 20.- 48 kg/w7Xpafta History RecordedToJuan Carlos junior MA 01/02/2020 2:49 PM SignedI have identified this patient to be Leonardo Nunes, -1960.BP (!) 140/91 (Orthostatic S ite : Arm - Left, Orthostatic Position : Sitting,Orthostatic Cuff Size : Large Ad ult) | Pulse 67 | Temp 97.4 F (36.3 C)(Oral) | Ht 6 (1.829 m) | Wt 151 lb (68.5 kg) | SpO 2 100% | BMI 20.48kg/mChief ComplaintPatient presents with Follow-up for: Teresa shabazz at this time.Lilli Ford FNP 01/02/2020 2:49 PM SignedI have identified this patient to be Leonardo Nunes, 1960.Patient s past medical history, surgical history, medic ations/allergiesreviewed and updated as appropriate. Social history and family history update salgado appropriate.HPI:Leonardo Nunes is a 59 year old male who presents for follow-up manageme nt:1) T2DM- last A1c=To view reference ranges, please go to the lab result in Chart Review.Compon ent Value Date HGBA1C 5.8 12/11/2019- last visit on 12/11/2019- medication changes at last vi sit included: noeCurrent diabetes medications:- metformin 500 BIDChecks sugars: yesRepor ts fasting blood sugars of: 110Patient knows current medications: yesPPSV-23 vaccination: dec linesEye exam: referred, appt todayStatin: compliantDepression: PHQ-2 negative2) Li lorena-Hx hep c, fibrosure showing fibrosis-2 beers daily-previously heavier drinking-does n ot wish to discuss, frustrated to be asked3) HTN-Improved control with addition soraida mullins-compliant with meds-checking at home- highest 156/903) SmokingSmoking- precontemplativ eq 3 days+cocaine per care everywhere 01/01/20, does not want to discuss today4) Stomachache-Freq uent BM x few days-No blood in stool-stomach surqmkzp-nb-af fevers-no known sick cont acts-tolerating PO-No bladder changes6) Dry Cough-never got flonase-will start it-smoking q 3 da ys-denies reflux- no epigastric burning or heartburnROS:Does not endorse chest pain , dyspnea, palpitations, dizziness, polyuria,polydipsia, polyphagia, headaches, vision changes, abdominal pain, nausea,vomiting, diarrhea, paresthesias, depression, or anxiety.EXAM:BP 138/86 | Pulse 67 | Temp 97.4 F (36.3 C) (Oral) | Ht 6 (1.829 m) | Wt151 lb (68.5 kg) | SpO2 100% | BMI 20.48 kg/mGeneral: alert and oriented x 4; no acute distressNeck: without jugula r vein distension or carotid bruits; thyroid nontenderwithout goiter or nodulesHeart: S1/S2; regular rate and rhythm; no murmur, gallop, click, or rubLungs: clear to auscultatio n bilaterally; no wheezes, crackles, rhonchiLower extremities: non-edematous bilaterallyAb domen: BS normal x 4; abdomen soft, non-tender, non-distended; no masses,organomegaly, o r rebound tendernessLABORATORY DATA:Results for orders placed or performed in visit on 01/02/20 RANDOM GLUCOSE IN HOUSEResult Value Ref Range GLUCOSE 261 (A) 70 - 200 mg/dLTo view reference ranges, please go to the lab result in Chart Review.Component Value Date HGBA1C 5.8 0 12/11/2019 MICROALBUMIN 14.6 11/13/2019 ALBCRERATIO 54.0 (H) 11/13/2019 LDL 49 12/11/2019 CREATIN INE 0.95 12/11/2019 PEDALPULSE [place] 11/13/2019 MONOFILAMENT 0 11/13/2019Wt Readings fro m Last 3 Encounters:01/02/20 151 lb (68.5 kg)12/11/19 151 lb (68.5 kg)11/13/19 138 lb (62.6 kg )BP Readings from Last 3 Encounters:01/02/20 138/ (!) 171/ (!) 18 0/103The 10-year ASCVD risk score (Burt SUTTON Jr., et al., 2013) is: 34.9% Values used to calculat e the score: Age: 59 years Sex: Male Is Non- : Yes Di abetic: Yes Tobacco smoker: Yes Systolic Blood Pressure: 140 mmHg Is BP treated: Yes HDL Cholesterol: 96 mg/dL Total Cholesterol: 158 mg/dLASSESSMENT/PLAN1. Type 2 diabetes m ellitus treated without insulin (HCC)Well controlled- RANDOM GLUCOSE IN HOUSE; Future- RANDOM GLUCOSE IN HOUSE- RANDOM GLUCOSE IN HOUSE; Future2. Alcohol use disorder, mild, abuseIn reymundo tment program. Does not want to discuss further today+cocaine per care everywhere 01/01/ 0, does not want to discuss today3. History of hepatitis CFibrosure showing advanced fibrosisRefe rred for liver u/s and elastographyCBC at f/u to monitor platelets- declines labs todayConsider e ndoscopy for varices q 2 years pending u/s results- will discussfurther at f/u, patient agitated today.- ULTRASOUND, LIVER- LIVER ELASTOGRAPHY4. Hypertension, essentialWell controlled w ith addition of losartan5. Tobacco use disorderPrecontemplative.6. CoughStill w ith persistent dry cough x several months, did not start flonase.Advised to get rx to see if this improves cough.Consider GERD, malignancy7. Abdominal crampingFew days of stomach discomfort a nd frequent bowel movements. Abdomen soft,nontender.No nausea or vomiting, declines medications for tx or further work up- insistson leavingDeclines pneumovax and labs today- revisit at f/u CBC and pneumovaxThe patient was warned about the serious risks and complications of notfo llowing up as discussed during the visit and verbalized an understanding ofthe plan.Reviewed concepcion n of care with patient and agrees with assessment and treatmentmoving forward.SARAH Colunga-Future AppointmentsDate Time Provider Department Center02/05/2020 9:30 AM [facility]illi [facility] for ophthalmology. A copy of e referralwas provided to patient again today and importance of referral completion wasrev iewed with patient.Patient has a primary dentist? NoPatient s last dental visit? More than 1 year agoPatient was referred to dentistry? Yes, patient referred to dentistry plan togo upstairsPrimary Diagnosis:E11.9 Type 2 diabetes mellitus treated without insulin (HCC) Other Diagnoses:F10.10 Alcohol use disorder, mild, abuse Z 86.19 History of hepatitis C I10 Hypertension, essential F17.200 Tobacco use disorder R05 Cough R10.9 Abd ominal crampingPrescriptions as of 01/02/2020 Disp Refills Start End amL ODIPine 10 MG Oral tablet 30 t* 2 11/13/2019 02/11/2020 Class: E Prescrib ing Route: Oral Sig: Take ONE tablet (10 mg total) by mouth daily benzonatate 100 MG Ora l capsule 20 c* 0 11/13/2019 11/20/2019 Class: E Prescribing Route: Oral S ig: Take ONE capsule (100 mg total) by mouth 3 (three) times a day as needed for cough for up to 7 days Blood Pressure Monitor Does not ap* 1 kit 0 11/13/2019 Class: E Prescribing Sig: For at home monitoring FLUTICASONE PROPIONATE, NASAL, 50 * 1 Carroll * 3 12/11/2019 Class: E Prescribing Route: Nasal Sig: ONE Act (50 mcg tot al) into each nostril 2 (two) times a day Losartan Potassium 25 MG Oral Tab 30 t* 1 12/11/2019 Class: E Prescribing Route: Oral Sig: Take ONE tablet (25 mg total) by m outh daily metFORMIN HCl 500 MG Oral Tab 60 t* 0 12/26/2019 Class: E Presc ribing Route: Oral Sig: Take ONE tablet (500 mg total) by mouth 2 (two) times a dayAngeloer jailene As of Date: 01/02/2020 Noted Allergy ReactionLISINOPRIL 11/13/2019 3 - Swelling Comments: Lip swellingDate Reviewed: 01/02/2020Reviewe d by: Lilli Ford FNP - ReviewedLevel of Service:18435 OFFIC/OUTPT VISIT E&M EST LOW-MOD SEVER* (QU,AQ) Historical Information Past Medical and Surgical HistoryMedical And Surgical History Item DateDiabetes mellitus, type II (HCC)HypertensionHX CHOLECYSTECTOMY 2011Family History Problem Relation Age of Onset Negative History Mother Negative History FatherF amily Status - Relation Status Age at Mother Father DeceasedSocial History Marital Status: Spouse: Years of Education: # children: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 rce(s) Supporting Document(s ) ID Date Data Source [id number] 01/02/2020 11:25:00 AM EST [facility] Name Value Range Interpretation Code Description Data [facility] rce(s) Supporting Document(s ) GLUCOSE 72 mg/dL 70-200 [facility] ID Date Data Source [id number] 01/02/2020 10:11:00 AM EST [facility] Name Value Range Interpretation Code Description Data Mattie rce(s) Supporting Document(s ) GLUCOSE 261 mg/dL 70-200 Abnormal (applies [facility] to non-numeric For Family results) Health ID Date Data Source [id number] 12/11/2019 06:05:46 PM [facility] [[email or web address]] [facility] Reason for Visit and Comments: Diabet es [34]Vitals (Last Filed):BP 171/99 (Orthostatic Site : Arm - Left, Orthostatic Pos- ition : Sitting, Orthostatic Cuff Size : Adult) Pulse 7- 6 Temp 97 .3 F (36.3 C) (Oral) Ht 5 10.08" (1.78 m)- Wt 151 lb (68.5 kg) SpO2 100 % BMI 21.62 kg/q9MmxiiqMaría Elena Cummings MA 12/11/2019 6:05 PM SignedI have identified this patient to be Leonardo Nunes, - 1960.BP (!) 171/99 (Orthostatic Site : Arm - Left, Orthosta tic Position : Sitting,Orthostatic Cuff Size : Adult) | Pulse 76 | Temp 97.3 F (36.3 C) (Oral ) |Ht 5 10.08" (1.78 m) | Wt 151 lb (68.5 kg) | SpO2 100% | BMI 21.62 kg/mChief Complaint Patient presents with DiabetesNo painPatient has not been to ER since last visitLeonardo Quiñones in [facility] to [facility] drawn. 1 stool card and 3sst tubes sent to [facility]. He tolerated the procedure well and willreturn to the clinic for results.Lilli Ford FNP 12/11/2019 6:05 PM SignedI have identified this patient to be Leonardo Nunes, [birth year].Patient s past medical history, surgical history, medications/allergiesreviewed and update d as appropriate. Social history and family history updatedas appropriate.HPI:Leonardo Reeves n is a 59 year old male who presents for follow-up management:1) T2DM- last A1c=5.8- last v isit on 11/13/2019- medication changes at last visit included:Diet: fish, chicken, broccoli, rice- 2-3x daily, bread, no soda/juice- exercise: lots of walkingCurrent diabetes medications:- metformin 500 BIDChecks sugars: yesReports fasting blood sugars of: 110-125Patient knows cu rrent medications: yesPPSV-23 vaccination: completedHAV/HBV vaccination: completedE ye exam: up-to-date and documentedStatin: compliantDepression: PHQ-2 negative2) HT N-taking amlodipine 10 mg daily-hx lip swelling with lisinopril-declines diuretic-BP: 156/96- no chest pain, headache, dizziness, shortness of breath3) Dry cough-smoking on and off q 3 days since age 13, precontemplative-on and off for months4) Alcohol use disorder-2 beers a day-no medications-In program at [facility]- Next Step5) Hx Hep C-treated 10-12 years ago, unsure wh at medication-told was cured-unsure fibrosisAgrees to HIVROS:Does not endorse chest pain, dysp sandee, palpitations, dizziness, polyuria,polydipsia, polyphagia, headaches, vision changes, abdominal pain, nausea,vomiting, diarrhea, paresthesias, depression, or anxiety.EXAM:BP (!) 171/9 9 (Orthostatic Site : Arm - Left, Orthostatic Position : Sitting,Orthostatic Cuff Size : Adult) | Pulse 76 | Temp 97.3 F (36.3 C) (Oral) |Ht 5 10.08" (1.78 m) | Wt 151 lb (68.5 kg) | SpO2 100% | BMI 21.62 kg/mGeneral: alert and oriented x 4; no acute distressNeck: wit hout jugular vein distension or carotid bruits; thyroid nontenderwithout goiter or nodulesHeart: S1/S2; regular rate and rhythm; no murmur, gallop, click, or rubLungs: clear to auscultatio n bilaterally; no wheezes, crackles, rhonchiLower extremities: non-edematous bilaterallyLA BORATORY DATA:Results for orders placed or performed in visit on 12/11/19RANDOM GLUCOSE IN HOUSE Result Value Ref Range GLUCOSE 130 70 - 200 mg/dLTo view reference ranges, please go to the lab r esult in Chart Review.Component Value Date MICROALBUMIN 14.6 11/13/2019 ALBCRERATIO 54.0 (H) 12/2019 PEDALPULSE [place] 11/13/2019 MONOFILAMENT 0 11/13/2019Wt Readings from Last 3 Encoun ters:12/11/19 151 lb (68.5 kg)11/13/19 138 lb (62.6 kg)BP Readings from Last 3 Encounters: (!) 171/ (!) 180/103The ASCVD Risk score (Burt SUTTON Jr., et al., 2013) failed to calculate for thefollowing reasons: Cannot find a previous HDL lab Cannot find a previous total cholesterol labASSESSMENT/PLAN1. Hypertension, essentialStill elevated after restarted amlodipine 10mg. Per patient hx lip swellingwith lisinopril. Patient declines diuretic- h as tried in past and does notwant. Plan to start losartan 25 mg. If still elevated in 1 w [place] at home, planto double losartan and follow up here for BP check in 3 weeks. If elevated atf /u, increase losartan/consider diuretic. Advised to immediately discontinue ifany lip/oral s welling and seek emergent help with difficulty breathing.LOSARTAN 25- COMP METABOLIC PA INEZ; Future- COMP METABOLIC PANEL2. Type 2 diabetes mellitus treated without insulin (HCC)We ll controlled on metformin. Discussed healthy diet.- HGB A1C IN HOUSE; Future- RANDOM GLUCOSE IN HOUSE; Future- RANDOM GLUCOSE IN HOUSE- HGB A1C IN HOUSE3. Alcohol use disorder, mild, abus eIn program at [facility] for substance use. Drinking ~2 beers daily4. History of hepatitis CPer patient cured 10-12 yrs ago. Consider liver u/s at f/u- HEP C FIBROSURE/FIBROTEST/ACTITEST; Futu re- HEP C FIBROSURE/FIBROTEST/ACTITEST5. Recurrent dry coughTrial of flonase for recurrent dry cough- FLUTICASONE PROPIONATE, NASAL, 50 MCG/ACT Nasal Suspension; ONE Act (50 mcgtotal) into e ach nostril 2 (two) times a day Dispense: 1 Bottle; Refill: 36. Screening for lipid disorder s- LIPID PANEL; Future- LIPID PANEL7. Screening for viral disease- HEPATITIS C ANTIBODY W/ R EFLEX RT PCR; Future- HEPATITIS C ANTIBODY W/ REFLEX RT PCR8. Encounter for screening for HIV- 4 TH GEN HIV TEST-IFH RECOMMENDED; Future- 4TH GEN HIV TEST-IFH RECOMMENDED9. Special screening for malignant neoplasms, colon- FECAL GLOBIN BY IMMUNOCHEMISTRYThe patient was warned ab out the serious risks and complications of notfollowing up as discussed during the visit and lorena balized an understanding ofthe plan.Reviewed plan of care with patient and agrees with assess ment and treatmentmoving forward.SARAH [place]-Future AppointmentsDate [facility] Provider Department [place]01/02/2020 9:00 AM Lilli Ford FNP W-FM WFHPatient has a prima ry dentist? Yes, confirmed primary dentist with patientPatient s last dental visit? More than 1 year agoPatient was referred to dentistry? Yes, patient referred to dentistryPrimary Polly gnosis:I10 Hypertension, essential Other Diagnoses:E11.9 Type 2 diabetes yuri itus treated without insulin (HCC) F10.10 Alcohol use disord er, mild, abuse Z86.19 History of hepatitis C R05 R ecurrent dry cough Z13.220 Screening for lipid disorders Z11 .59 Screening for viral disease Z11.4 Encounter for screening for HI V Z12.11 Special screening for malignant neoplasms, colonPrescriptions as of 12/11/2019 Disp Refills Start End amLODIPine 10 MG Oral tablet 30 t* 2 11/13/2019 02/11/2020 Class: E Prescribing Route: Oral Sig: Take ONE tablet (10 mg total) by mouth daily benzonatate 100 MG Oral capsule 20 c* 0 11/13/2019 11/20/2019 Class: E Prescribing Route: Oral Sig: Take ONE capsule (100 mg to mary) by mouth 3 (three) times a day as needed for cough for up to 7 days Blood Pres sure Monitor Does not ap* 1 kit 0 11/13/2019 Class: E Prescribing Sig: For at home monitoring * FLUTICASONE PROPIONATE, NASAL, 50 * 1 [place]* 3 12/11/2019 Class: E Presc ribing Route: Nasal Sig: ONE Act (50 mcg total) into each nostril 2 (two) times a day * Losartan Potassium 25 MG Oral Tab 30 t* 1 12/11/2019 Class: E Prescribing Rou te: Oral Sig: Take ONE tablet (25 mg total) by mouth daily metFORMIN HCl 500 MG Oral Tab 60 t* 0 11/13/2019 Class: E Prescribing Route: Oral Sig: Take ONE tablet ( 500 mg total) by mouth 2 (two) times a dayAllergies As of Date: 12/11/2019 Noted Allergy ReactionLISINOPRIL 11/13/2019 3 - Swelling Comments: Lip swellingDa te Reviewed: 12/11/2019Reviewed by: María Elena Cummings MA - ReviewedLevel of Service:21197 OFF IC/OUTPT VISIT E&M EST LOW-MOD SEVER* (QU,AQ) Historical Information Past Medical and Surgical HistoryMedical And Surgical History Item DateDiabetes mellitus, type II (HCC)HypertensionHX CHOLECYSTECTOMY 2012Family History Problem Relation Age of Onset Negative History Mother Negative History FatherF amily Status - Relation Status Age at Mother Father DeceasedSocial History Marital Status: Spouse: Years of Education: # children: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, hasn t worked 8 yrs [facility] the [facility] Daughter 39 y/o, 3 grandkids to 40 yearsSocial History Topics Tobacco Use: Yes Start Date: Comment: 1 daily q 3 days, on and off since age 13 Alcohol Use: Yes 1.2 oz/week 2 Cans of beer per week Drug Use: Not Currently Sexually Active: Yes Partners with: Female Control/Protection: Condom, none of the timeImmunizations Administered Influenza, Injectable,(cciiv4), Qu* 0 11/13/2019 Tdap 11/13/2019 Name Value Range Interpretation Code Description Data Mattie rce(s) Supporting Document(s ) ID Date Data Source [id number] 12/13/2019 03:46:00 AM EST [facility] Name Value Range Interpretation Code Description Data Mattie rce(s) Supporting Document(s ) HEP <1.18 <1.18 [facility] SKYLER Duarte,(LO log-10 [facility] G-10) Health ID Date Data Source [id number] 12/13/2019 03:46:00 AM EST [facility] Name Value Range Interpretation Code Description Data Mattie rce(s) Supporting Document(s ) HEP <15 ND <15 [facility] CRNA,IU IU/mL [facility] HEP C ULTRAQUANT, RNA INTERPRETATION HEP-C (IU/mL) Interpretation <15 N D Not Detected <15 D Detected 15 - >30,000,000 Detected NOTE: The [place] 88 00 HCV Test is not intended for use as the sole diagnostic test to confirm the presence of HCV infection. NOTE: Results for Baljeet HAILEY 8800 HEP C Quantitative assa y reports with a range of <15-30 million IU/mL. ID Date Data Source [id number] 12/12/2019 02:43:00 PM EST [facility] Name Value Range Interpretation Description Data Sup porting Code Source(s) Document(s ) OCCULT BLOOD NEGATIVE NEGATIVE The IMMUNOCHEM [facility] ID Date Data Source [id number] 12/12/2019 11:10:00 AM EST [facility] Name Value Range Interpretation Description Data Sup porting Code Source(s) Document(s ) BILIRUBIN, TOTAL 0.4 mg/dL <1.2 [facility] G-GTP 169 U/L 10-71 Above high The normal [facility] ALT (SGPT) 14 U/L <41 The [facility] APOLIPOPROTEIN 229 mg/dL 104-202 Above high The A1 normal [facility] HAPTOGLOBIN 137 mg/dL 30-200 The [facility] GHVFO-3-HZHXSUUJ 526 mg/dL 130-300 Above high The BULIN normal [facility] FIBROSIS SCORE 0.62 NA The [facility] FIBROSIS STAGE F3 The [facility] FIBROSIS INTERP advanced The fibrosis [facility] NECROINFLAMMAT 0.07 NA The ACTIVITY SCORE [facility] NECROINFLAMMAT A0 The ACTIVITY GRADE [facility] NECROINFLAMMAT no The INTERP activity [facility] FIBROSIS AND NECROINFLAMMATION SCORES AND INTERPR ETATIONS FibroTest Score Metavir Score0.00-0.21 F0 no fibrosis0.22-0.27 F0-F10.28-0.31 F1 minimal fibrosis0.32-0.48 F1-F20.49-0.58 F2 moderate fibrosis0.59-0.72 F3 advanced fibrosis0.73-0.74 F3-F40.75-1.00 F4 severe fibrosis ActiTest Score Metavir Score0.00-0.17 A0 no activity0.18-0.29 A0-A10.30-0.36 A1 min imal activity0.37-0.52 A1-A20.53-0.60 A2 significant activity0.61-0.62 A2-A30.63-1.00 A3 severe activity Performed By: [employer] [address] P: [phone] Precautions:The reliability of results is dependent on compliance with the preanal ytical and analytical conditions recommendedby [employer].The tests have to be deferred for: acute hemolysis, acute hep atitis, acute inflammation, extrahepatic cholestasis.The advice of a specialist should be sought for interpretation in c hronic hemolysis and Gilbert s syndrome.The test interpretation is not validated in liver transplant patients.Isolated extre me values of one of the components should lead to caution in interpreting the results.In case of discordance between a biopsy result and a test, it is recommended to seek the advice of agastroenterologist.The causes of these discordances could be due to a flaw in the biopsy: i.e. a liver biopsy has a 25% variabilityrate for one fibrosis stage. Interpretability:FibroTest(R) is interpretable for chronic Hepatitis B and C, alcoholic and nonalcoholic steatosis (NA SH).ActiTest(R) is interpretable for chronic Hepatitis B and C. References: 1. Brody NN, et al. FibroTest Fibrosure f or Significant Liver Fibrosis and Cirrhosis in Chronic Hepatitis B: A [place]-Analysis. Am J Gastroenterol 2014; 109:796-809. 2. Nasim Bray et al. The impact of liver disease aetiology and the stages of hepatic fibrosis on the performance of non invasive fibrosis markers: an international study of 2411 cases. Aliment Pharmacol Ther 2011 ;34:1329-6612. ID Date Data Source [id number] 12/12/2019 06:18:00 AM EST [facility] Name Value Range Interpretation Description Data Sup porting Code Source(s) Document(s ) PROTEIN, 8.9 g/dL 5.9-8.4 Above high normal The TOTAL, SERUM [facility] ALBUMIN 5.4 g/dL 3.5-5.2 Above high normal The [facility] GLOBULIN, 3.5 g/dL 1.7-3.7 The TOTAL [facility] A/G RATIO 1.5 1.1-2.9 The Ratio [facility] SODIUM 139 135-147 The mmol/L [facility] POTASSIUM 4.4 3.5-5.5 The mmol/L [facility] CHLORIDE 98 96-108 The mmol/L [facility] CARBON DIOXIDE 20 22-29 Below low normal The mmol/L [facility] UREA NITROGEN 7 mg/dL 6-20 The (BUN) [facility] CREATININE 0.95 0.67-1.3 The mg/dL 1 [facility] EGFR 87 >or=60 The mL/min [facility] EGFR 101 >or=60 The MALAGASY mL/min [facility] BUN/CREATININE 7.4 NA 10.0-28. Below low normal The RATIO 0 [facility] CALCIUM 10.1 8.6-10.4 The mg/dL [facility] BILIRUBIN, 0.4 <1.2 The TOTAL mg/dL [facility] ALKALINE 118 U/L 40-156 The PHOSPHATASE [facility] AST (SGOT) 38 U/L <40 The [facility] ALT (SGPT) 14 U/L <41 The [facility] GLUCOSE 79 mg/dL 70-99 The [facility] ID Date Data Source [id number] 12/12/2019 05:29:00 AM EST [facility] Name Value Range Interpretation Description Data Sup porting Code Source(s) Document(s ) CHOLESTEROL 158 <200 The mg/dL [facility] HDL CHOLESTEROL 96 mg/dL >40 The [facility] TRIGLYCERIDES 65 mg/dL <150 The [facility] HDL % OF 61 % >14 The CHOLESTEROL [facility] Family [facility] Evaluation: BELOW AVERAGE RISK CHOL/HDL RATIO 1.6 NA <7.4 [facility] or Family [facility] Evaluation: BELOW AVERAGE RISK HDL/LDL RATIO 0.51 NA <3.56 The [facility] LDL CHOLESTEROL 49 mg/dL <100 The [facility] VLDL CHOLESTEROL ANISHA 13 mg/dL 7-32 [facility] NON HDL CHOL. (LDL+VLDL) 62 mg/dL <130 [facility] ID Date Data Source [id number] 12/12/2019 05:19:00 AM EST [facility] Name Value Range Interpretation Description Data Sup porting Code Source(s) Document(s ) HEP C AB. 9.28 NA <0.80 Above high The S/CO RATIO normal [facility] HEPATITIS C Borderline Non-Reac Abnormal The ANTIBODY Reactive tive (applies to [facility] results) Health NOTE: Hep C Ab. S/CO Ratio results betwe en 1.00-10.99 may be confirmed by repeat testing if clinically indicated. Al ternately you may submit a new specimen for Hepatitis C PCR viral load, test co de 3376. (Note that low viral loads may not be detected by Nucleic Acid Testing a nd a negative CHAD by PCR could indicate a false-positive EIA screening result). NOTE: A repeatedly reactive result is consistent with current HCV infection, or past HCV infection that has resolved, or biologic false positivity for HC V antibody. Test for HCV RNA to indentify current infection. ID Date Data Source [id number] 12/12/2019 05:14:00 AM EST [facility] Name Value Range Interpretation Description Data Sup porting Code Source(s) Document(s ) HIV 1/2 Non-React Non-React [facility] AB, EIA laurence laurence [facility] Assay Information: Assay for the detecti on of HIV p24 antigen and antibodies to Human Immunodeficiency Virus Type 1,including Group O (HIV-1 + "O") and/or T ype 2 (HIV-2) Method: Chemiluminescence ([employer]) ID Date Data Source [id number] 12/11/2019 11:14:00 AM EST [facility] Name Value Range Interpretation Description Data Sup porting Code Source(s) Document(s ) HEMOGLOBIN A1C 5.8 % 0-7 [facility] ID Date Data Source [id number] 12/11/2019 10:59:00 AM EST [facility] Name Value Range Interpretation Code Description Data Mattie rce(s) Supporting Document(s ) GLUCOSE 130 mg/dL 70-200 [facility] ID Date Data Source [id number] 11/13/2019 04:59:44 PM [facility] Reason for Visit and Comments: Well E xam [1110] - New patient Cough [28]Vitals (Last Filed):BP 180/103 Pulse 89 Temp 97.9 F (36.6 C) (Oral) H- t 5 10.08" (1.78 m) Wt 138 lb (62.6 kg) SpO2 99% B- OK 19.76 kg/o7Vatfzn History RecordedCuJen yeung MA 11/13/2019 4:59 PM SignedI have identified this patient to be Leonardo Edin, ELEANOR -1960.Chief C omplaintPatient presents with Well Exam New patient CoughBP (!) 185/103 (Orthostatic Site : Arm - Right, Orthostatic Position : Sitting,Orthostatic Cuff Size : Adult) | Pulse 89 | Temp 9 7.9 F (36.6 C) (Oral) |Ht 5 10.08" (1.78 m) | Wt 138 lb (62.6 kg) | SpO2 99% | BMI 19.7 6 kg/mPain 4/5Cramon Quiñonesin was given the seven points of information about HIV required by the Public Health Law, which was reviewed with the patient.HIV testing was recommended and offered to the patient in compliance withChapter 308 of the [facility] Laws of 2009.Med-Grounds Worker infor med that patient had no other questions.The patient chose to decline the test at this time b ut understands it is anoption at future encounters..Results for orders placed or performed in visit on 11/13/19FOOT EXAMINATION PERFORMEDResult Value Ref Range PEDAL PU LSE EXAM [place] MONOFILAMENT TESTING 0 0 - 3RANDOM GLUCOSE IN HOUSEResult Value Ref Range GLUCOSE 1 09 70 - 200 mg/dLLeonardo Nunes at [facility] to have blood drawn. 1 urine tubes sent to [facility]. He tolerated the procedure well and will return to theclinic for results.Lilli Encarnacion FNP 11/13/2019 4:59 PM SignedI have identified this patient to be Leonardo Hank ramachandran, ELEANOR 1960.Patient Active Problem ListDiagnosis Tobacco use disorderPatie nt s past medical history, surgical history, medications/allergiesreviewed and update d as appropriate. Social history and family history updatedas appropriate.HPI:Leonardo santoro is a 59 year old male who presents [facility]:Lives at the [facility] here from a [facility], unsure where, no records in careeverywherePMH: Hypertension, DM IIPS H: colecystectomySmoking 1 cigarette q 3-4 days1 female partner 40 years, declines STI testing, agreeable to HIV at follow up1) Hypertension-dx around 2009-out of blood pressure medication x 1 week-no chest pain, headache, dizziness, palpitations-on amlodipine 10 mg, lisino pril caused lip swelling-has machine at home, unsure of readings2) Diabetes II-dx 2009-Metformin 500 BID- last took 2 days ago, has some at home, rushed out today-no other medication for DM3) C ough-chest tightness and cough x about 1 week, mild congestion-no phlegm-1 cigarette q 3-4 d ays-tried robitussin- didn t help-no known sick contacts-no recent travel-no fevers, polly rrhea, nausea or vomitting-denies hx allergiesFlu and TDAP today, pneumococcal next visitROS:S ee HPI.EXAM:BP (!) 185/103 (Orthostatic Site : Arm - Right, Orthostatic Position : Sitting,Or thostatic Cuff Size : Adult) | Pulse 89 | Temp 97.9 F (36.6 C) (Oral) |Ht 5 10.08" (1.78 m) | Wt 138 lb (62.6 kg) | SpO2 99% | BMI 19.76 kg/mGeneral: alert and oriented x 4; no acute distressHEENT: normocephalic/atraumatic; conjunctivae/corneae clear; TMs intact andclear bilaterally; pharynx non- erythematous and tonsils without exudates;shotty submandi bular lymphadenopathy bilaterally;Heart: S1/S2; regular rate and rhythm; no murmur, gallop, clic k, or rubLungs: clear to auscultation bilaterally; no wheezes, crackles, rhonchiLower extremit ies: non-edematous bilaterallyAbdomen: BS normal x 4; abdomen soft, non-tender, non-distended; no masses,organomegaly, or rebound tendernessLABORATORY DATA:ThisvisitASSESSMENT/PLAN1. Hyperten hermes, essentialElevated blood pressure off antihypertensives x 1 week, asymptomatic today.Poor EKG, need repeat at follow up, patient left before repeat could be done.Resume amlod ipine 10 mg. Recheck here in 2 weeks.Record values at home and bring to follow up.- COMP METAB OLIC PANEL; Future- COMP METABOLIC PANEL2. Essential hypertension- Blood Pressure Monitor Lujan s not apply Kit; For at home monitoring Dispense:1 kit; Refill: 0- ECG-ROUTINE W/12 LEADS; W/INT ERPT & REP*; Future- amLODIPine 10 MG Oral tablet; Take ONE tablet (10 mg total) by mouth dailyD ispense: 30 tablet; Refill: 2- ECG- ROUTINE W/12 LEADS; W/INTERPT & REP*3. Viral URI with coughC ough x ~1 week with mild congestion, afebrile. Likely viral URI. ConsiderGERD, allergies, eval uate further at follow up.Explained likely viral nature of infection, no need for antibiotics at thistime.Encouraged rest, increased hydration, good hand washing, hot tea, throatlozenges/co ugh drops,Follow up if symptoms worsen or fail to improve in 3-5 daysAdvised benzonatate f or sleep PRN, use sparingly for cough. Advised smokingcessation.- benzonatate 100 MG Or al capsule; Take ONE capsule (100 mg total) by mouth 3(three) times a day as needed for cough for up to 7 days Dispense: 20 capsule;Refill: 04. Type 2 diabetes mellitus treated without insu renaldo (HCC)Refilled medication, to bring log of fingersticks to follow up.- LIPID PANEL; Future- CONSULT TO OPHTHALMOLOGY DIABETES- FOOT EXAMINATION PERFORMED; Future- FOOT EXAM INATION PERFORMED- HGA1C (HGB GLYCOSYLATED); Future- LIPID PANEL- HGA1C (HGB GLYCOSYLATED)- m etFORMIN HCl 500 MG Oral Tab; Take ONE tablet (500 mg total) by mouth 2(two) times a day Disp ense: 60 tablet; Refill: 05. Tobacco use disorderSmoking 1 cigarette q 3-4 days. Does not want he lp quitting at this time.6. Need for prophylactic vaccination and inoculation against infl uenza- RANDOM GLUCOSE IN HOUSE; Future- FLUCELVAX, INFLUENZA, CCIIV4, PSRV FREE, 4YRS+, 0.5 ML, PREFILLED SYRINGE;Future- FLUCELVAX, INFLUENZA, CCIIV4, PSRV FREE, 4YRS+, 0.5 ML, PREFIL LED SYRINGE- RANDOM GLUCOSE IN HOUSE7. Need for prophylactic vaccination with combined d khdogualc-jkwtlkm-aedhdcjkk(DTP) vaccine- TDAP VACCINE 7 YRS/> IM; Future- TDAP VACCINE 7 YRS/> I M8. Special screening for malignant neoplasms, colon- FECAL GLOBIN BY IMMUNOCHEMISTRY; Future9 . Encounter for screening for HIVPatient desires at follow up visit. Will do insti at follow up.Unable to draw labs today, patient hard stick. Advised hydration prior toreturn visit i n 2 weeks.Reviewed plan of care with patient and agrees with assessment and treatmentmoving rodrigo valle.The patient was warned about the serious risks and complications of notfollowing up as disc ussed during the visit and verbalized an understanding ofthe plan.SARAH [place]- 0Next appointment:Future AppointmentsDate Time [facility]12/11/2019 10:00 AM Lilli Kim FNP W- WFHPatient has a primary dentist? NoPatient s last dental visit? More than 1 year agoPatient was referred to dentistry? Yes, patient referred to Jeremiah Bashir RN 11/13/2019 4:59 PM SignedChief ComplaintPatient presents with Well Exam New patient C ouI have identified this patient to be Leonardo Nunes, -1960.Tdap,Flucelvax vaccine/s administered as per provider Logan s order. Seevaccine imm/inj section.Patient Commu nication and Education AssessmentLearner: PatientLearning Needs reviewed: Immuniza tions: YesBarriers: NoneTeaching Methods: HandoutVerbalized Understanding: Communi cates/understandsFollow up plan: PRN with ProviderSignature: Tiana Agudelo RNTitle: Cata Babin Caitlin, FNP 11/13/2019 12:45 PM Written20: 1 cigarette q 3-4 day sPrimary Diagnosis:I10 Hypertension, essential Other Diagnoses:I10 Essential hype rtension J06.9, * Viral URI with cough E11.9 Type 2 diabet es mellitus treated without insulin(HCC) F17.200 Tobacco use disorder Z23 Need for prophylactic vaccination and inoculationagainst influenza Z23 Need for prophylactic vaccination with ieiawcmusckyevmcaw-gydlwsq-wvbojhjbi (DT P) vaccine Z12.11 Special screening for malignant neoplasms, colon Z11.4 Encounter for screening for HIV I10 Essential (primary) hypertension (Active) Comment:Billing Diagnosis J06.9 Acute upper respiratory infection, unspecified(Active) Comment:Billing Diagnosis E11.9 Type 2 diabetes mellitus without comp lications(Active) Comment:Billing Diagnosis F17.200 Nicotine dependence, unspecified, uncomplicated(Active) Comment:Billing Diagnosis Z12.11 Encounter for screening for ma lignant neoplasm ofcolon (Active) Comment:Billing Diagnosis Z11.4 Encounter for screening for human immunodeficiencyvirus (HIV) (Active) Comment:Billing Diagnosis B97.89 Other viral agents a s the cause of diseasesclassified elsewhere (Active) Comment:Billing D iagnosis Z23 Encounter for immunization (Active) Comment:Billing DiagnosisPrescriptions as of 11/13/2019 Disp Refills S tart End * amLODIPine 10 MG Oral tablet 30 t* 2 11/13/2019 02/11/2020 C lass: E Prescribing Route: Oral Sig: Take ONE tablet (10 mg total) by mouth daily * b enzonatate 100 MG Oral capsule 20 c* 0 11/13/2019 11/20/2019 Class: E Prescrib ing Route: Oral Sig: Take ONE capsule (100 mg total) by mouth 3 (three) times a day as needed for cough for up to 7 days * Blood Pressure Monitor Does not ap* 1 kit 0 11/13/2019 Class: E Prescribing Sig: For at home monitoring * metFORMIN HCl 500 MG Oral Tab 60 t* 0 11/13/2019 Class: E Prescribing Route: Oral Sig: Take ONE tablet (500 mg total) by mouth 2 (two) times a dayAllergies As of Date: 11/13/2019 Not ed Allergy ReactionLISINOPRIL 11/13/2019 3 - Swelling Comments : Lip swellingDate Reviewed: 11/13/2019Reviewed by: Jen Jaime MA - ReviewedLevel of Service:58447 [facility] MEDS E&M NEW PT; 40-64 YR (QU,AQ) Hist orical Information Past Medical and Surgical HistoryMedical And Surgical History Item DateDiabetes mellitus, type II (HCC)HypertensionHX CHOLECYSTECTOMY 2011Family History Problem Relation Age of Onset Negative History Mother Negative History FatherF amily Status - Relation Status Age at Mother Father DeceasedSocial History Marital Status: Spouse: Years of Education: # children:Social History Na rrative (none)Social History Topics Tobacco Use: Yes Start Date: Comment: 1 cigarette q 3 -4 days Alcohol Use: Yes 1.2 oz/week 2 Cans of beer per week Drug Use: Not Currently Sexually Active: Yes Partners with: Female Control/Protection : Condom, none of the timeImmunizations Administered Influenza, Inject able,(cciiv4), Qu* 11/13/2019 Tdap 11/13/2019 Name Value Range Interpretation Code Description Data Mattie rce(s) Supporting Document(s ) ID Date Data Source [id number] 11/14/2019 07:22:00 AM EST [facility] Name Value Range Interpretation Description Data Sup porting Code Source(s) Document(s ) MICROALBUMIN 14.6 Not The mg/dL Estab. [facility] CREATININE, UR 270.4 Not The (CR) mg/dL Estab. [facility] MICROALB/CREAT 54.0 <30.0 Above high normal The RATIO mg/g [facility] ID Date Data Source [id number] 11/13/2019 12:00:00 AM EST [facility] Name Value Range Interpretation Code Description Data Mattie rce(s) Supporting Document(s ) GLUCOSE 109 mg/dL 70-200 [facility] Procedure Social History Code Duration Value Status Description Data Source(s ) Alcohol intake 06/12/2020 Current completed Current drinker The I nstitute 12:00:00 AM EDT drinker of of alcohol For Famil y alcohol (finding) Health (finding) Tobacco use and 06/12/2020 Never used completed Never used The Insti tute exposure 12:00:00 AM EDT For Famil y Health Smoking 06/12/2020 Current some completed Current some day The In stitute 12:00:00 AM EDT day smoker smoker For Famil y Health Alcohol intake 06/03/2020 Current [facility] 12:00:00 AM EDT drinker of For Famil y alcohol Health (finding) Alcohol intake 04/09/2020 Current [facility] 12:00:00 AM EDT drinker of For Famil y alcohol Health (finding) Tobacco smoking 04/09/2020 Current some The Ins titute status NHIS 12:00:00 AM EDT day smoker For Fami ly Health Tobacco use and 04/09/2020 Never used The Insti tute exposure 12:00:00 AM EDT For Famil y Health Tobacco use and 02/05/2020 Never used The Inst[facility] tute exposure 12:00:00 AM EDT For Famil y Health Tobacco smoking 02/05/2020 Current some The Ins titute status NHIS 12:00:00 AM EDT day smoker For Fami ly Health Alcohol intake 02/05/2020 Current [facility] 12:00:00 AM EDT drinker of For Famil y alcohol Health (finding) Tobacco smoking 01/29/2020 Current some The Ins titute status NHIS 12:00:00 AM EDT day smoker For Fami ly Health Alcohol intake 01/29/2020 Current [facility] 12:00:00 AM EDT drinker of For Famil y alcohol Health (finding) Alcohol intake 01/02/2020 Current [facility] 12:00:00 AM EST drinker of For Famil y alcohol Health (finding) Tobacco smoking 01/02/2020 Current some The Ins titute status NHIS 12:00:00 AM EST day smoker For Fami ly Health Tobacco Comment 12/11/2019 1 daily q 3 The Inst itute 12:00:00 AM EST days, on and For Fam patt off since age Health 13 Alcohol intake 12/11/2019 Current [facility] 12:00:00 AM EST drinker of For Famil y alcohol Health (finding) Tobacco smoking 12/11/2019 Current some The Ins titute status NHIS 12:00:00 AM EST day smoker For Fami ly Health Alcohol intake 11/13/2019 Current [facility] 12:00:00 AM EST drinker of For Famil y alcohol Health (finding) Tobacco smoking 11/13/2019 Current some The Ins titute status NHIS 12:00:00 AM EST day smoker For Fami ly Health Vital Signs ID Date Data Source UNK Name Value Range Interpretation Code Description Data Source(s) Diastolic blood 70 mm[Hg] 70 mm[Hg] The [facility] For pressure Family Health Systolic blood 140 mm[Hg] 140 mm[Hg] The [facility] For pressure Family Health Body temperature 32.72 Alma 32.72 Alma [facility] Heart rate 73 /min 73 /min The [facility] Diastolic blood 94 mm[Hg] 94 mm[Hg] The [facility] For pressure Family Health Systolic blood 138 mm[Hg] 138 mm[Hg] The [facility] platinum For pressure Family Health Diastolic blood 94 mm[Hg] 94 mm[Hg] The [facility] For pressure Family Health Systolic blood 124 mm[Hg] 124 mm[Hg] The [facility] For pressure Family Health Diastolic blood 88 mm[Hg] 88 mm[Hg] The [facility] tute For pressure Family Health Systolic blood 128 mm[Hg] 128 mm[Hg] The [facility] For pressure Family Health Diastolic blood 86 mm[Hg] 86 mm[Hg] The [facility] For pressure Family Health Systolic blood 138 mm[Hg] 138 mm[Hg] The [facility] For pressure Family Health Oxygen saturation 100 % 100 % The Ins titute For in Arterial blood Family Health by Pulse oximetry Body weight 68.493 kg 68.493 kg The [facility] Body height 182.9 cm 182.9 cm The [facility] Body temperature 36.33 Alma 36.33 Alma [facility] Heart rate 67 /min 67 /min The [facility] Oxygen saturation 100 % 100 % The Ins titute For in Arterial blood Family Health by Pulse oximetry Body weight 68.493 kg 68.493 kg The [facility] Body height 178 cm 178 cm The [facility] Body temperature 36.28 Alma 36.28 Alma [facility] Heart rate 76 /min 76 /min The [facility] Diastolic blood 99 mm[Hg] 99 mm[Hg] The Insti tute For pressure Family Health Systolic blood 171 mm[Hg] 171 mm[Hg] The [facility] platinum For pressure Family Health Diastolic blood 103 mm[Hg] 103 mm[Hg] The Insti tute For pressure Family Health Systolic blood 180 mm[Hg] 180 mm[Hg] The [facility] platinum For pressure Family Health Oxygen saturation 99 % 99 % The Ins titute For in Arterial blood [facility] by Pulse oximetry Body weight 62.596 kg 62.596 kg The [facility] Body height 178 cm 178 cm The [facility] Body temperature 36.61 Alma 36.61 Alma The [facility] itute [facility] Heart rate 89 /min 89 /min The [facility] Patient Treatment Plan of Care Planned Activity Planned Date Details Description Data Source (s) Amlodipine 10 MG Oral 07/20/2020 12:00:00 [facility] Tablet AM [facility] Thiamine 100 MG Oral 06/28/2020 12:00:00 [facility] Tablet AM [facility] Multiple Vitamin 06/28/2020 12:00:00 [facility] (MULTI-VITAMIN) Oral AM [facility] tablet Metformin hydrochloride 06/28/2020 12:00:00 [facility] 500 MG Oral Tablet AM [facility] He alth Losartan Potassium 25 MG 06/28/2020 12:00:00 [facility] Oral Tablet AM [facility] Amlodipine 10 MG Oral 06/28/2020 12:00:00 [facility] Tablet AM [facility] Metformin hydrochloride 06/21/2020 12:00:00 [facility] 500 MG Oral Tablet AM [facility] He alth Losartan Potassium 25 MG 06/21/2020 12:00:00 [facility] Oral Tablet AM EDT [facility] Amlodipine 10 MG Oral 06/21/2020 12:00:00 [facility] Tablet AM EDT [facility] Thiamine 100 MG Oral 05/22/2020 12:00:00 [facility] Tablet AM T [facility] Multiple Vitamin 05/20/2020 12:00:00 [facility] (MULTI-VITAMIN) Oral AM [facility] tablet Amlodipine 10 MG Oral 04/21/2020 12:00:00 [facility] Tablet AM [facility] Metformin hydrochloride 04/21/2020 12:00:00 [facility] 500 MG Oral Tablet AM EDT Family He alth Losartan Potassium 25 MG 04/21/2020 12:00:00 [facility] Oral Tablet AM [facility] Azelastine HCl 0.15 % 04/09/2020 12:00:00 [facility] Nasal Solution AM [facility] benzonatate 200 MG Oral 04/09/2020 12:00:00 [facility] Capsule AM [facility] FLUTICASONE PROPIONATE, 12/11/2019 12:00:00 [facility] NASAL, 50 MCG/ACT Nasal AM EST [facility] Health Suspension Blood Pressure Monitor 11/13/2019 12:00:00 [facility] Does not apply Kit AM EST Family He alth
--- NOTE | 2020-08-30 18:27 | HP ---
CIWA Score Nausea/Vomitin-No Nausea/No Vomiting Muscle Tremors: 6 Anxiety: 3 Agitation: 3 Paroxysmal Sweats: 2 Orientation: 1-Uncertain about Date Tacttile Disturbances: 0-None Auditory Disturbances: 0-None Visual Disturbances: 0-None Headache: 3-Moderate (States GOVEA is a "7") CIWA-Ar Total Score: 18 - Admission Criteria OASAS Guidelines: Admission for Medically Managed Detox: Requires at least one of the followin. CIWA greater than 12 2. Seizures within the past 24 hours 3. Delirium tremens within the past 24 hours 4. Hallucinations within the past 24 hours 5. Acute intervention needed for co occurring medical disorder 6. Acute intervention needed for co occurring psychiatric disorder 7. Severe withdrawal that cannot be handled at a lower level of care (continued vomiting, continued diarrhea, abnormal vital signs) requiring intravenous medication and/or fluids 8. Patient presents the following: CIWA greater than 12 (Intoxicated. COCO: from 280 down TO 214), Acute intervention needed for co-occurring med or psych disorder (DM) Admission Criteria Met: Admission criteria met Admitting History and Physical - Smoking History Smoking history: Current some day smoker Have you smoked in the past 12 months: Yes Aproximately how many cigarettes per day: 1 - Alcohol/Substance Use Hx Alcohol Use: Yes Admission ROS BHS - HPI Chief Complaint: "Here because I drink too much and I want to stop drinking". Allergies/Adverse Reactions: Allergies Allergy/AdvReac Type Severity Reaction Status Date / Time No Known Allergies Allergy Verified 08/30/20 17:17 History of Present Illness: 59 yo presents with alcohol intoxication w/ co-occurring alcohol withdrawal. COCO: 0.263; to 258; to 280(1620 pm) to 214 (1900 pm) UTox: + GORDON/BZO Alcohol use began at age 13. Currently drinks 2-3 pints Vodka/day. Cocaine/Crack rarely - states only did yesterday cause was a a alliance party. Nicotine use began at age 13. Smokes 1 Cig/day STATES BENZO PROBLEM FROM LIBRIUM WHILE AT [facility]. "A SEVERAL DAYS AGO" PMHx: DM. HTN - last took meds this am MHHx: Denies MH issues. Denies thoughts of harming self or others. SHHx: Domiciled. Unemployed. Denies legal issues Search Terms: Leonardo Jesus, 1960 Search Date: 08/30/2020 18:23:11 PM The Drug Utilization Report below displays all of the controlled substance prescriptions, if any, that your patient has filled in the last twelve months. The information displayed on this report is compiled from pharmacy submissions to the Department, and accurately reflects the information as submitted by the pharmacies. This report was requested by: Magi Caal | Reference #: [id number] There are no results for the search terms that you entered. Exam Limitations: Intoxication - Ebola screening Have you traveled outside of the country in the last 21 days: No (Denies COVID exposure) Have you had contact with anyone from an Ebola affected area: No Have you been sick,other than usual withdrawal symptoms: No Do you have a fever: No - Review of Systems Constitutional: Diaphoresis, Changes in sleep (dIFFICULTY FALLING ASLEEP), Unintentional Wgt. Loss EENT: reports: Blurred Vision, Dental Problems (DENTURES) Respiratory: reports: No Symptoms reported Cardiac: reports: No Symptoms Reported GI: reports: Abdominal cramping : reports: No Symptoms Reported Musculoskeletal: reports: Back Pain (Chronic intermitent loewer back pain. - unsure of trigger. No pain at this time.) Integumentary: reports: No Symptoms Reported Neuro: reports: Headache ("7". Denies head injury) Endocrine: reports: Increased Thirst Hematology: reports: Blood Clots, Easy Bleeding Psychiatric: reports: Agitated, Anxious, Disorientated Patient History - Patient Medical History Hx Anemia: Yes Hx Asthma: No Hx Chronic Obstructive Pulmonary Disease (COPD): No Hx Cancer: Yes (Prostate CA ) Hx Cardiac Disorders: No Hx Congestive Heart Failure: No Hx Hypertension: Yes (currently on treatment) Hx Hypercholesterolemia: No Hx Pacemaker: No HX Cerebrovascular Accident: No Hx Seizures: No Hx Dementia: No Hx Diabetes: Yes (Metformin ) Hx Gastrointestinal Disorders: No Hx Liver Disease: No Hx Genitourinary Disorders: Yes (PROSTATE CA) Hx Sexually Transmitted Disorders: No Hx Renal Disease (ESRD): No Hx Thyroid Disease: No Hx Human Immunodeficiency Virus (HIV): No Hx Hepatitis C: Yes (treated) Hx Depression: No Hx Suicide Attempt: No (DENIES) Hx Bipolar Disorder: No Hx Schizophrenia: No - Patient Surgical History Past Surgical History: Yes Hx Neurologic Surgery: No Hx Cataract Extraction: No Hx Cardiac Surgery: No Hx Lung Surgery: No Hx Breast Surgery: No Hx Breast Biopsy: No Hx Abdominal Surgery: No Hx Appendectomy: No Hx Cholecystectomy: No Hx Genitourinary Surgery: Yes (SX FOR PROSTATE CANCER IN 2002) Hx Section: No Hx Orthopedic Surgery: No Other Surgical History: prostate Anesthesia Reaction: No - PPD History Previous Implant?: Yes Documented Results: Negative w/proof Implanted On Prior [facility] Admission?: Yes Date: 06/16/17 Results: 0 mm PPD to be Administered?: Yes - Smoking Cessation Smoking history: Current some day smoker Have you smoked in the past 12 months: Yes Aproximately how many cigarettes per day: 1 Hx Chewing Tobacco Use: No Initiated information on smoking cessation: Yes 'Breaking Loose' booklet given: 08/30/20 - Substance & Tx. History Hx Alcohol Use: Yes Hx Substance Use: Yes Substance Use Type: Alcohol Hx Substance Use Treatment: Yes (detox, rehab) Admission Physical Exam BHS - Vital Signs Vital Signs: Vital Signs - 24 hr 08/30/20 13:52 Temperature 97.8 F Pulse Rate 82 Respiratory 12 Rate Blood Pressure 135/87 - Physical General Appearance: Yes: Nourished, Mild Distress, Intoxicated, Tremorous, Sweating (Increased facial moisture), Anxious HEENTM: Yes: EOMI, Hearing grossly Normal, Normocephalic, Normal Voice, TERESA, Pharynx Normal Respiratory: Yes: Lungs Clear, Normal Breath Sounds, No Respiratory Distress Neck: Yes: No masses,lesions,Nodules, Supple Breast: Yes: Breast Exam Deferred Cardiology: Yes: Regular Rhythm, Regular Rate, S1, S2 Abdominal: Yes: Non Tender, Flat, Soft, Increased Bowel Sounds Genitourinary: Yes: Within Normal Limits Back: Yes: Normal Inspection Musculoskeletal: Yes: full range of Motion, Gait Steady Extremities: Yes: Normal Capillary Refill, Tremors (@ rest) Neurological: Yes: procurement specialist II-XII NML intact, Alert, Motor Strength 5/5, Other (Grouchy) Integumentary: Yes: Normal Color, Warm - Diagnostic (1) Alcohol dependence with uncomplicated intoxication Current Visit: Yes Status: Acute (2) DM Diabetes mellitus type 2 Current Visit: Yes Status: Chronic (3) Essential hypertension Current Visit: Yes Status: Chronic (4) Nicotine dependence Current Visit: Yes Status: Chronic Qualifiers: Nicotine product type: cigarettes Substance use status: uncomplicated Qualified Code(s): F17.210 - Nicotine dependence, cigarettes, uncomplicated Cleared for Admission BHS - Detox or Rehab [facility] Level of Care: Medically Managed Detox Regimen/Protocol: Ativan Claeared for Rehab Admission: No Breathalyzer - Breathalyzer Breathalyzer: 0.263 Urine Drug Screen - Test Device Lot number: [id number] Expiration date: 02/17/22 - Control Is test valid?: Yes - Results Drug screen NEGATIVE: No Urine drug screen results: GORDON-Cocaine, BZO-Benzodiazepines Inpatient Rehab Admission - Rehab Decision to Admit Inpatient rehab admission?: No
[2020-08-30] MEDS ORDERED: LORazepam 1 MG TABLET PO PRN (18:55)
[2020-08-30] MEDS ORDERED: LORazepam 2 MG TABLET PO ONE (18:55)
[2020-08-30] MEDS ORDERED: MENTHOL/PHENOL 1 EACH UD MM PRN (18:56)
[2020-08-30] MEDS ORDERED: ONDANSETRON *ODT* 4 MG TABLET SL PRN (18:56)
[2020-08-30] MEDS ORDERED: BISMUTH SUBSALICYLATE 524 MG/30 ML UD PO PRN (18:56)
[2020-08-30] MEDS ORDERED: MAG HYDROX/AL HYDROX/SIMETH 30 ML UNIT-DOSE CUP PO PRN (18:56)
[2020-08-30] MEDS ORDERED: MAGNESIUM CITRATE 300 ML BOTTLE PO PRN (18:56)
[2020-08-30] MEDS ORDERED: ACETAMINOPHEN 325 MG TABLET (FP) PO PRN ×2 (18:56)
[2020-08-30] MEDS ORDERED: MAGNESIUM HYDROX 2400MG/30ML ORAL SUSPENSION 30 ML CUP PO PRN (18:56)
[2020-08-30] MEDS ORDERED: METHOCARBAMOL 500 MG TABLET PO PRN (18:56)
[2020-08-30] MEDS: metFORMIN HCL 500 MG TABLET (FP) PO SCH (20:21)
[2020-08-30] MEDS: MELATONIN 5 MG TABLETS PO SCH (22:51)
[2020-08-30] MEDS: LORazepam 2 MG TABLET PO SCH (22:51)
[2020-08-30] MEDS: THIAMINE HCL 100 MG TABLET (FP) PO SCH (22:51)
[2020-08-31] MEDS: LORazepam 2 MG TABLET PO SCH ×4 (05:39→22:26)
[2020-08-31] MEDS: IBUPROFEN 400 MG TABLET (FP) PO PRN ×2 (05:40→17:54)
[2020-08-31] MEDS: metFORMIN HCL 500 MG TABLET (FP) PO SCH ×2 (06:04→16:52)
[2020-08-31] MEDS ORDERED: amLODIPine BESYLATE 10 MG TABLET (FP) PO SCH (10:00)
[2020-08-31 10:04] LABS: POTASSIUM 4.3 mmol/L (3.5-5.1)
[2020-08-31 10:06] LABS: HEMATOCRIT 33.4 % (35.4-49); HEMOGLOBIN 11.2 GM/dL (11.7-16.9); MCH 33.4 pg (25.7-33.7); MCHC 33.6 g/dl (32.0-35.9); MEAN CELL VOLUME 99.2 fl (80-96); MEAN PLT VOLUME 7.9 fl (7.5-11.1); PLATELET COUNT 161 K/MM3 (134-434); RBC 3.37 M/mm3 (4.00-5.60); RDW 13.1 % (11.9-15.9)
[2020-08-31] MEDS: NICOTINE 7 MG/24 HOURS TOPICAL PATCH TD SCH (10:07)
[2020-08-31] MEDS: PRENATAL VITAMINS W/ FOLIC ACID TABLET (FP) PO SCH (10:07)
[2020-08-31] MEDS: NICOTINE POLACRILEX 2 MG GUM BUC PRN (10:08)
[2020-08-31 10:17] LABS: ALBUMIN 3.7 g/dl (3.4-5.0); BLOOD UREA NITROGEN 12.9 mg/dL (7-18); CALCIUM 9.6 mg/dL (8.5-10.1)
[2020-08-31 10:21] LABS: BILIRUBIN,TOTAL 0.5 mg/dL (0.2-1)
[2020-08-31 10:22] LABS: TOT PROT 7.1 g/dl (6.4-8.2)
--- NOTE | 2020-08-31 12:35 | PN ---
S CIWA - CIWA Score Nausea/Vomitin-Mild Nausea/No Vomiting Muscle Tremors: 3 Anxiety: 3 Agitation: 2 Paroxysmal Sweats: 1-Minimal Palms Moist Orientation: 0-Oriented Tacttile Disturbances: 0-None Auditory Disturbances: 0-None Visual Disturbances: 1-Very Mild Sensitivity Headache: 2-Mild CIWA-Ar Total Score: 13 S Progress Note (SOAP) Subjective: 59 years old male was admitted on 08/30/20 for alcohol withdrawal sx management treating with ativan detox regiment feels tired today bmi 21.3 glucerna 1 can po tid with meals less tremor prefers to stay in bed resting limited conversation with staff Objective: 08/31/20 12:36 Vital Signs - 24 hr 08/30/20 08/30/20 08/30/20 13:52 20:05 20:36 Temperature 97.8 F 97.3 F L 97.3 F L Pulse Rate 82 77 77 Respiratory 12 18 18 Rate Blood Pressure 135/87 120/81 120/81 O2 Sat by Pulse 99 99 Oximetry (%) 08/31/20 08/31/20 06:14 09:16 Temperature 98.2 F 98.2 F Pulse Rate 81 80 Respiratory 18 18 Rate Blood Pressure 150/88 130/77 O2 Sat by Pulse 96 96 Oximetry (%) Laboratory Tests 08/30/20 08/31/20 08/31/20 20:18 05:38 07:21 WBC 4.0 RBC 3.37 L Hgb 11.2 L Hct 33.4 L MCV 99.2 H MCH 33.4 MCHC 33.6 RDW 13.1 Plt Count 161 D MPV 7.9 Sodium Potassium Chloride Carbon Dioxide Anion Gap BUN Creatinine Est GFR (CKD-EPI)AfAm Est GFR (CKD-EPI)NonAf POC Glucometer 107 107 Random Glucose Calcium Total Bilirubin AST ALT Alkaline Phosphatase Total Protein Albumin Syphilis Serology 08/31/20 08/31/20 08/31/20 07:21 07:21 11:28 WBC RBC Hgb Hct MCV MCH MCHC RDW Plt Count MPV Sodium 136 Potassium 4.3 Chloride 104 Carbon Dioxide 20 L Anion Gap 12 BUN 12.9 Creatinine 1.0 Est GFR (CKD-EPI)AfAm 94.39 Est GFR (CKD-EPI)NonAf 81.44 POC Glucometer 98 Random Glucose 92 Calcium 9.6 Total Bilirubin 0.5 AST 38 H ALT 17 Alkaline Phosphatase 79 Total Protein 7.1 Albumin 3.7 Syphilis Serology Non-reactive 08/31/20 12:38 covid pending Assessment: 08/31/20 12:39 alcohol withdrawal Plan: ativan regiment
--- NOTE | 2020-08-31 14:26 | EKG ---
Test Reason : Blood Pressure : / mmHG Vent. Rate : 075 BPM Atrial Rate : 075 BPM P-R Int : 182 ms QRS Dur : 080 ms QT Int : 368 ms P-R-T Axes : 078 052 070 degrees QTc Int : 410 ms NORMAL SINUS RHYTHM NORMAL ECG WHEN COMPARED WITH ECG OF 14-JUN-2017 19:11, NO SIGNIFICANT CHANGE WAS FOUND Confirmed by MD KEVIN MOYSES ([id number]) on 08/31/2020 2:25:51 PM Referred By: Confirmed By:PERLITA KEVIN MD
[2020-08-31] MEDS: THIAMINE HCL 100 MG TABLET (FP) PO SCH (22:26)
[2020-08-31] MEDS: MELATONIN 5 MG TABLETS PO SCH (22:26)
[2020-09-01] MEDS: LORazepam 1 MG TABLET PO SCH ×4 (06:04→22:25)
[2020-09-01] MEDS: metFORMIN HCL 500 MG TABLET (FP) PO SCH ×2 (06:04→17:22)
--- NOTE | 2020-09-01 09:49 | PN ---
S CIWA - CIWA Score Nausea/Vomitin-Mild Nausea/No Vomiting Muscle Tremors: 2 Anxiety: 2 Agitation: 1-Slight > Activity Paroxysmal Sweats: 1-Minimal Palms Moist Orientation: 0-Oriented Tacttile Disturbances: 0-None Auditory Disturbances: 0-None Visual Disturbances: 0-None Headache: 1-Very Mild CIWA-Ar Total Score: 8 BHS Progress Note (SOAP) Subjective: 59 years old male was admitted on 08/30/20 for alcohol withdrawal sx management treating with ativan detox regiment Vital Signs - 24 hr 08/31/20 08/31/20 08/31/20 12:36 14:25 16:59 Temperature 97.5 F L 97.5 F L Pulse Rate 95 H 77 76 Respiratory 18 18 Rate Blood Pressure 159/102 H 148/89 159/96 O2 Sat by Pulse 96 Oximetry (%) 08/31/20 09/01/20 09/01/20 20:29 06:36 09:07 Temperature 97.5 F L 98.4 F 98.3 F Pulse Rate 77 78 74 Respiratory 18 20 18 Rate Blood Pressure 161/94 146/97 140/81 O2 Sat by Pulse 99 100 100 Oximetry (%) bp elevation resume lisinopril 20 mg po bid Objective: 09/01/20 09:48 Vital Signs Temperature 98.3 F 09/01/20 09:07 Pulse Rate 74 09/01/20 09:07 Respiratory Rate 18 09/01/20 09:07 Blood Pressure 140/81 09/01/20 09:07 O2 Sat by Pulse Oximetry (%) 100 09/01/20 09:07 Laboratory Tests 08/30/20 08/31/20 08/31/20 20:18 05:38 07:21 WBC 4.0 RBC 3.37 L Hgb 11.2 L Hct 33.4 L MCV 99.2 H MCH 33.4 MCHC 33.6 RDW 13.1 Plt Count 161 D MPV 7.9 Sodium Potassium Chloride Carbon Dioxide Anion Gap BUN Creatinine Est GFR (CKD-EPI)AfAm Est GFR (CKD-EPI)NonAf POC Glucometer 107 107 Random Glucose Calcium Total Bilirubin AST ALT Alkaline Phosphatase Total Protein Albumin Syphilis Serology 08/31/20 08/31/20 08/31/20 07:21 07:21 11:28 WBC RBC Hgb Hct MCV MCH MCHC RDW Plt Count MPV Sodium 136 Potassium 4.3 Chloride 104 Carbon Dioxide 20 L Anion Gap 12 BUN 12.9 Creatinine 1.0 Est GFR (CKD-EPI)AfAm 94.39 Est GFR (CKD-EPI)NonAf 81.44 POC Glucometer 98 Random Glucose 92 Calcium 9.6 Total Bilirubin 0.5 AST 38 H ALT 17 Alkaline Phosphatase 79 Total Protein 7.1 Albumin 3.7 Syphilis Serology Non-reactive 08/31/20 09/01/20 16:29 06:03 WBC RBC Hgb Hct MCV MCH MCHC RDW Plt Count MPV Sodium Potassium Chloride Carbon Dioxide Anion Gap BUN Creatinine Est GFR (CKD-EPI)AfAm Est GFR (CKD-EPI)NonAf POC Glucometer 121 104 Random Glucose Calcium Total Bilirubin AST ALT Alkaline Phosphatase Total Protein Albumin Syphilis Serology lab noted 09/01/20 09:49 covid pending Assessment: 09/01/20 09:49 alcohol withdrawal Plan: ativan regiment
[2020-09-01] MEDS: LISINOPRIL 20 MG TABLET PO SCH ×2 (10:15→22:25)
[2020-09-01] MEDS: amLODIPine BESYLATE 10 MG TABLET (FP) PO SCH (10:15)
[2020-09-01] MEDS: NICOTINE POLACRILEX 2 MG GUM BUC PRN ×2 (10:15→22:28)
[2020-09-01] MEDS: NICOTINE 7 MG/24 HOURS TOPICAL PATCH TD SCH (10:15)
[2020-09-01] MEDS: PRENATAL VITAMINS W/ FOLIC ACID TABLET (FP) PO SCH (10:15)
[2020-09-01] MEDS: MELATONIN 5 MG TABLETS PO SCH (22:25)
[2020-09-01] MEDS: THIAMINE HCL 100 MG TABLET (FP) PO SCH (22:25)
[2020-09-02] MEDS ORDERED: LORazepam 0.5 MG TABLET PO PRN
[2020-09-02] MEDS: LORazepam 0.5 MG TABLET PO SCH ×4 (05:55→22:12)
[2020-09-02] MEDS: IBUPROFEN 400 MG TABLET (FP) PO PRN (05:57)
[2020-09-02] MEDS: metFORMIN HCL 500 MG TABLET (FP) PO SCH ×2 (06:41→16:52)
--- NOTE | 2020-09-02 09:08 | PN ---
S CIWA - CIWA Score Nausea/Vomitin-Mild Nausea/No Vomiting Muscle Tremors: 1-None Visible, but Evans Anxiety: 1-Mildly Anxious Agitation: 0-Normal Activity Paroxysmal Sweats: No Perspiration Orientation: 0-Oriented Tacttile Disturbances: 0-None Auditory Disturbances: 0-None Visual Disturbances: 1-Very Mild Sensitivity Headache: 1-Very Mild CIWA-Ar Total Score: 5 BHS Progress Note (SOAP) Subjective: 59 years old male was admitted on 08/30/20 for alcohol withdrawal sx management treating with ativan detox regiment feels better today ate breakfast in room good hygiene speech clearly coherently long history of none insulin dependent diabetes II treated with metformin recent bgm within acceptable range low bp upon admission hold lisinopril bp elevation along with ativan rasheed resume lisinorpin mr rai is look forward to go to [facility] for his alcohol abuse treatment Objective: 09/02/20 09:10 Vital Signs - 24 hr 09/01/20 09/01/20 09/01/20 12:33 16:45 20:16 Temperature 97.3 F L 97.5 F L 97.5 F L Pulse Rate 67 72 80 Respiratory 18 17 18 Rate Blood Pressure 132/84 123/88 142/84 O2 Sat by Pulse 99 98 Oximetry (%) 09/02/20 09/02/20 06:42 08:56 Temperature 97.7 F 97.5 F L Pulse Rate 87 85 Respiratory 16 18 Rate Blood Pressure 151/75 110/70 O2 Sat by Pulse 99 99 Oximetry (%) Laboratory Tests 08/30/20 08/30/20 08/31/20 20:18 20:50 05:38 WBC RBC Hgb Hct MCV MCH MCHC RDW Plt Count MPV Sodium Potassium Chloride Carbon Dioxide Anion Gap BUN Creatinine Est GFR (CKD-EPI)AfAm Est GFR (CKD-EPI)NonAf POC Glucometer 107 107 Random Glucose Calcium Total Bilirubin AST ALT Alkaline Phosphatase Total Protein Albumin Syphilis Serology COVID-19 (MAMADOU) Not detected 08/31/20 08/31/20 08/31/20 07:21 07:21 07:21 WBC 4.0 RBC 3.37 L Hgb 11.2 L Hct 33.4 L MCV 99.2 H MCH 33.4 MCHC 33.6 RDW 13.1 Plt Count 161 D MPV 7.9 Sodium 136 Potassium 4.3 Chloride 104 Carbon Dioxide 20 L Anion Gap 12 BUN 12.9 Creatinine 1.0 Est GFR (CKD-EPI)AfAm 94.39 Est GFR (CKD-EPI)NonAf 81.44 POC Glucometer Random Glucose 92 Calcium 9.6 Total Bilirubin 0.5 AST 38 H ALT 17 Alkaline Phosphatase 79 Total Protein 7.1 Albumin 3.7 Syphilis Serology Non-reactive COVID-19 (MAMADOU) 08/31/20 08/31/20 09/01/20 11:28 16:29 06:03 WBC RBC Hgb Hct MCV MCH MCHC RDW Plt Count MPV Sodium Potassium Chloride Carbon Dioxide Anion Gap BUN Creatinine Est GFR (CKD-EPI)AfAm Est GFR (CKD-EPI)NonAf POC Glucometer 98 121 104 Random Glucose Calcium Total Bilirubin AST ALT Alkaline Phosphatase Total Protein Albumin Syphilis Serology COVID-19 (MAMADOU) 09/01/20 09/01/20 09/02/20 11:42 16:21 05:56 WBC RBC Hgb Hct MCV MCH MCHC RDW Plt Count MPV Sodium Potassium Chloride Carbon Dioxide Anion Gap BUN Creatinine Est GFR (CKD-EPI)AfAm Est GFR (CKD-EPI)NonAf POC Glucometer 133 168 122 Random Glucose Calcium Total Bilirubin AST ALT Alkaline Phosphatase Total Protein Albumin Syphilis Serology COVID-19 (MAMADOU) lab noted Assessment: 09/02/20 09:10 alcohol withdrawal Plan: ativan regiment
[2020-09-02] MEDS: NICOTINE 7 MG/24 HOURS TOPICAL PATCH TD SCH (10:15)
[2020-09-02] MEDS: LISINOPRIL 20 MG TABLET PO SCH ×2 (10:15→22:12)
[2020-09-02] MEDS: PRENATAL VITAMINS W/ FOLIC ACID TABLET (FP) PO SCH (10:15)
[2020-09-02] MEDS: amLODIPine BESYLATE 10 MG TABLET (FP) PO SCH (10:15)
[2020-09-02] MEDS: NICOTINE POLACRILEX 2 MG GUM BUC PRN (10:16)
[2020-09-02 21:49] VITALS: TEMP 97.8
[2020-09-02] MEDS: THIAMINE HCL 100 MG TABLET (FP) PO SCH (22:12)
[2020-09-02] MEDS: MELATONIN 5 MG TABLETS PO SCH (22:12)
[2020-09-03] MEDS ORDERED: LORazepam 0.5 MG TABLET PO ONE (05:00)
[2020-09-03] MEDS: NICOTINE POLACRILEX 2 MG GUM BUC PRN (05:25)
[2020-09-03] MEDS: metFORMIN HCL 500 MG TABLET (FP) PO SCH (06:55)
[2020-09-03 08:50] VITALS: BP 109/68; PULSE 73
--- NOTE | 2020-09-03 09:24 | DS ---
[facility] Detox Discharge Summary Admission Date: 08/30/20 Discharge Date: 09/03/20 - History Present History: Alcohol Dependence Pertinent Past History: 59 yo presented to [facility] with alcohol intoxication w/ co-occurring alcohol withdrawal. On admission: COCO: 0.263; to 258; to 280(1620 pm) to 214 (1900 pm) UTox: + GORDON/BZO Alcohol use began at age 13. Currently drinks 2-3 pints Vodka/day. 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 Nicotine use began at age 13. Smokes 1 Cig/day STATES BENZO PROBLEM FROM LIBRIUM WHILE AT [facility]. "A SEVERAL DAYS AGO" PMHx: DM. HTN - last took meds this am MHHx: Denies MH issues. Denies thoughts of harming self or others. SHHx: Domiciled. Unemployed. Denies legal issues PE gnl: WDWN, in no distress Mentation: nl Motor: moves limbs well Coord: grossly nl Laboratory Tests 08/30/20 08/30/20 08/31/20 20:18 20:50 05:38 WBC RBC Hgb Hct MCV MCH MCHC RDW Plt Count MPV Sodium Potassium Chloride Carbon Dioxide Anion Gap BUN Creatinine Est GFR (CKD-EPI)AfAm Est GFR (CKD-EPI)NonAf POC Glucometer 107 107 Random Glucose Calcium Total Bilirubin AST ALT Alkaline Phosphatase Total Protein Albumin Syphilis Serology COVID-19 (MAMADOU) Not detected 08/31/20 08/31/20 08/31/20 07:21 07:21 07:21 WBC 4.0 RBC 3.37 L Hgb 11.2 L Hct 33.4 L MCV 99.2 H MCH 33.4 MCHC 33.6 RDW 13.1 Plt Count 161 D MPV 7.9 Sodium 136 Potassium 4.3 Chloride 104 Carbon Dioxide 20 L Anion Gap 12 BUN 12.9 Creatinine 1.0 Est GFR (CKD-EPI)AfAm 94.39 Est GFR (CKD-EPI)NonAf 81.44 POC Glucometer Random Glucose 92 Calcium 9.6 Total Bilirubin 0.5 AST 38 H ALT 17 Alkaline Phosphatase 79 Total Protein 7.1 Albumin 3.7 Syphilis Serology Non-reactive COVID-19 (MAMADOU) 08/31/20 08/31/20 09/01/20 11:28 16:29 06:03 WBC RBC Hgb Hct MCV MCH MCHC RDW Plt Count MPV Sodium Potassium Chloride Carbon Dioxide Anion Gap BUN Creatinine Est GFR (CKD-EPI)AfAm Est GFR (CKD-EPI)NonAf POC Glucometer 98 121 104 Random Glucose Calcium Total Bilirubin AST ALT Alkaline Phosphatase Total Protein Albumin Syphilis Serology COVID-19 (MAMADOU) 09/01/20 09/01/20 09/02/20 11:42 16:21 05:56 WBC RBC Hgb Hct MCV MCH MCHC RDW Plt Count MPV Sodium Potassium Chloride Carbon Dioxide Anion Gap BUN Creatinine Est GFR (CKD-EPI)AfAm Est GFR (CKD-EPI)NonAf POC Glucometer 133 168 122 Random Glucose Calcium Total Bilirubin AST ALT Alkaline Phosphatase Total Protein Albumin Syphilis Serology COVID-19 (MAMADOU) 09/02/20 09/02/20 09/03/20 11:37 16:29 05:23 WBC RBC Hgb Hct MCV MCH MCHC RDW Plt Count MPV Sodium Potassium Chloride Carbon Dioxide Anion Gap BUN Creatinine Est GFR (CKD-EPI)AfAm Est GFR (CKD-EPI)NonAf POC Glucometer 138 192 127 Random Glucose Calcium Total Bilirubin AST ALT Alkaline Phosphatase Total Protein Albumin Syphilis Serology COVID-19 (MAMADOU) Active Medications Generic Name Dose Route Start Last Admin Trade Name Freq PRN Reason Stop Dose Admin Acetaminophen 650 mg 08/30/20 18:56 Tylenol - PO Q6H PRN PAIN LEVEL 4 - 6 Acetaminophen 650 mg 08/30/20 18:56 Tylenol - PO Q6H PRN FEVER Al Hydroxide/Mg Hydroxide 30 ml 08/30/20 18:56 Mylanta Oral Suspension - PO Q6H PRN DYSPEPSIA Amlodipine Besylate 10 mg 09/01/20 10:00 09/02/20 10:15 Norvasc - PO 10 mg DAILY JAVIER Administration Bismuth Subsalicylate 524 mg 08/30/20 18:56 Pepto-Bismol - PO Q1H PRN DIARRHEA Eucalyptus/Menthol/Phenol/Sorbitol 1 each 08/30/20 18:56 Cepastat Lozenge - MM 09/05/20 18:56 Q4H PRN SORE THROAT Ibuprofen 400 mg 08/30/20 18:56 09/02/20 05:57 Motrin - PO 400 mg Q6H PRN Administration PAIN LEVEL 1 - 3 Lisinopril 20 mg 09/01/20 10:00 09/02/20 22:12 Prinivil PO 20 mg BID JAVIER Administration Magnesium Citrate 300 ml 08/30/20 18:56 Citroma - PO Q48H PRN CONSTIPATION Magnesium Hydroxide 30 ml 08/30/20 18:56 Milk Of Magnesia - PO PRN PRN CONSTIPATION Melatonin 5 mg 08/30/20 22:00 09/02/20 22:12 Melatonin PO 5 mg HS JAVIER Administration Metformin HCl 500 mg 08/30/20 19:30 09/03/20 06:55 Glucophage - PO 500 mg BIDI JAVIER Administration Methocarbamol 500 mg 08/30/20 18:56 09/02/20 05:57 Robaxin - PO 09/05/20 18:56 500 mg Q12H PRN Administration MUSCLE SPASMS Nicotine 7 mg 08/31/20 10:00 09/02/20 10:15 Nicoderm Patch - TD Not Given DAILY JAVIER Nicotine Polacrilex 2 mg 08/30/20 18:56 09/03/20 05:25 Nicorette Gum - BUC 2 mg Q2H PRN Administration NICOTINE REPLACEMENT RX Ondansetron HCl 4 mg 08/30/20 18:56 Zofran Odt - SL Q8H PRN Nausea/Vomiting Multivit/Folic Acid/Iron 1 tab 08/31/20 10:00 09/02/20 10:15 Vitamins (Sjr) - PO 1 tab DAILY JAVIER Administration Thiamine HCl 100 mg 08/30/20 22:00 09/02/20 22:12 Vitamin B1 - PO 100 mg HS JAVIER Administration - Physical Exam Results Vital Signs: Vital Signs Temperature 97.8 F 09/03/20 08:40 Pulse Rate 73 09/03/20 08:40 Respiratory Rate 18 09/03/20 08:40 Blood Pressure 109/68 09/03/20 08:40 O2 Sat by Pulse Oximetry (%) 99 09/03/20 08:40 - Treatment Hospital Course: Detox Protocol Followed, Detoxed Safely, Responded well, Discharged Condition Good, Rehab Referral Accepted Patient has Accepted a Rehab Referral to: [facility] - Medication Discharge Medications: Ambulatory Orders Amlodipine Besylate [Norvasc -] 10 mg PO DAILY #30 tablet 09/02/20 Amlodipine Besylate [Norvasc -] 10 mg PO DAILY #30 tablet 09/02/20 Lisinopril [Prinivil] 20 mg PO BID #60 tablet 09/02/20 Lisinopril [Prinivil] 20 mg PO BID #60 tablet 09/02/20 Metformin HCl [Glucophage] 500 mg PO BID 30 Days #60 tablet 09/02/20 metFORMIN HCL [Glucophage -] 500 mg PO BIDI #60 tablet 09/02/20 - AMA Did Patient Leave Against Medical Advice: No
[2020-09-03] MEDS: NICOTINE 7 MG/24 HOURS TOPICAL PATCH TD SCH (10:01)
[2020-09-03] MEDS: amLODIPine BESYLATE 10 MG TABLET (FP) PO SCH (10:01)
[2020-09-03] MEDS: PRENATAL VITAMINS W/ FOLIC ACID TABLET (FP) PO SCH (10:01)
[2020-09-03] MEDS: LISINOPRIL 20 MG TABLET PO SCH (10:01)
== END 2020-09-03 09:45 | disposition other institution (70) | DRG 774 ==
LOC: YASAS 12:10 → Y3N 17:19
PROVIDERS: ADMIT Allergy & Immunology; ATTEND Allergy & Immunology
PROC: HZ2ZZZZ Detoxification Services for Substance Abuse Treatment (ICD-10-PCS; principal; 2020-08-30)
DX: F10.230 Alcohol dependence with withdrawal, uncomplicated (principal); F10.220 Alcohol dependence with intoxication, uncomplicated; F14.20 Cocaine dependence, uncomplicated; F17.210 Nicotine dependence, cigarettes, uncomplicated; D64.9 Anemia, unspecified; I10 Essential (primary) hypertension; E11.9 Type 2 diabetes mellitus without complications; Z79.84 Long term (current) use of oral hypoglycemic drugs; Z85.46 Personal history of malignant neoplasm of prostate; Z86.19 Personal history of other infectious and parasitic diseases
CPT/HCPCS: 36415; 80053; 82962; 85027; 86780; 93005; 93010; C9803; U0003

== ENCOUNTER 2021-01-14 17:25 | Inpatient (IN) | payer OTHER ==
[2021-01-14 21:04] VITALS: BMI 19.6
[2021-01-14] MEDS ORDERED: IBUPROFEN 400 MG TABLET (FP) PO PRN (21:51)
[2021-01-14] MEDS ORDERED: MAG HYDROX/AL HYDROX/SIMETH 30 ML UNIT-DOSE CUP PO PRN (21:51)
[2021-01-14] MEDS ORDERED: P-EPHED 60MG/TRIPROLIDI 2.5MG TABLET PO PRN (21:51)
[2021-01-14] MEDS ORDERED: MAGNESIUM HYDROX 2400MG/30ML ORAL SUSPENSION 30 ML CUP PO PRN (21:51)
[2021-01-14] MEDS ORDERED: DICYCLOMINE HCL 10 MG CAPSULE PO PRN (21:51)
[2021-01-14] MEDS ORDERED: MAGNESIUM CITRATE 300 ML BOTTLE PO PRN (21:51)
[2021-01-14] MEDS ORDERED: ACETAMINOPHEN 325 MG TABLET (FP) PO PRN ×2 (21:51)
[2021-01-14] MEDS ORDERED: ONDANSETRON *ODT* 4 MG TABLET SL PRN (21:51)
[2021-01-14] MEDS ORDERED: METHOCARBAMOL 500 MG TABLET PO PRN (21:51)
[2021-01-14] MEDS ORDERED: LORazepam 1 MG TABLET PO PRN (21:51)
[2021-01-14] MEDS ORDERED: MENTHOL/PHENOL 1 EACH UD MM PRN (21:51)
[2021-01-14] MEDS ORDERED: BISMUTH SUBSALICYLATE 524 MG/30 ML UD PO PRN (21:51)
[2021-01-14] MEDS ORDERED: LORazepam 1 MG TABLET ONE (22:58)
[2021-01-14] MEDS: LORazepam 1 MG TABLET PO SCH (23:01)
[2021-01-14] MEDS: LISINOPRIL 20 MG TABLET PO SCH (23:21)
[2021-01-14] MEDS: MELATONIN 5 MG TABLETS PO SCH (23:21)
[2021-01-14] MEDS: THIAMINE HCL 100 MG TABLET (FP) PO SCH (23:21)
[2021-01-15] MEDS ORDERED: LORazepam 1 MG TABLET ONE (06:38)
[2021-01-15] MEDS: LORazepam 1 MG TABLET PO SCH ×4 (06:45→22:09)
[2021-01-15] MEDS: metFORMIN HCL 500 MG TABLET (FP) PO SCH (07:40)
[2021-01-15] MEDS: guaiFENesin 200 MG/10 ML 10 ML UNIT-DOSE CUPS PO PRN ×2 (07:40→22:11)
[2021-01-15 10:24] LABS: HEMATOCRIT 30.5 % (35.4-49); HEMOGLOBIN 10.3 GM/dL (11.7-16.9); MCH 33.6 pg (25.7-33.7); MCHC 33.9 g/dl (32.0-35.9); MEAN CELL VOLUME 99.1 fl (80-96); MEAN PLT VOLUME 7.9 fl (7.5-11.1); PLATELET COUNT 93 K/MM3 (134-434); RBC 3.07 M/mm3 (4.00-5.60); RDW 14.2 % (11.9-15.9); WHITE BLOOD COUNT 3.2 K/mm3 (4.0-10.0)
[2021-01-15 10:30] LABS: POTASSIUM 3.9 mmol/L (3.5-5.1)
[2021-01-15 10:37] LABS: BLOOD UREA NITROGEN 7.4 mg/dL (7-18)
[2021-01-15 10:38] LABS: ALBUMIN 3.8 g/dl (3.4-5.0); CALCIUM 8.9 mg/dL (8.5-10.1)
[2021-01-15 10:40] LABS: CREATININE 0.8 mg/dL (0.55-1.3)
[2021-01-15 10:42] LABS: BILIRUBIN,TOTAL 0.8 mg/dL (0.2-1); TOT PROT 6.8 g/dl (6.4-8.2)
[2021-01-15] MEDS: BACITRACIN 0.9 GM PACKET TP SCH (11:07)
[2021-01-15] MEDS: amLODIPine BESYLATE 10 MG TABLET (FP) PO SCH (11:08)
[2021-01-15] MEDS: LISINOPRIL 20 MG TABLET PO SCH ×2 (11:08→22:10)
[2021-01-15] MEDS: PRENATAL VITAMINS W/ FOLIC ACID TABLET (FP) PO SCH (11:08)
[2021-01-15 11:31] LABS: HIV INTERPRETATION NEGATIVE (NEGATIVE)
[2021-01-15] MEDS: THIAMINE HCL 100 MG TABLET (FP) PO SCH (22:09)
[2021-01-15] MEDS: MELATONIN 5 MG TABLETS PO SCH (22:10)
[2021-01-16] MEDS: LORazepam 1 MG TABLET PO SCH ×4 (05:42→22:23)
[2021-01-16] MEDS: metFORMIN HCL 500 MG TABLET (FP) PO SCH (07:26)
[2021-01-16] MEDS ORDERED: METHOCARBAMOL 500 MG TABLET PO ONE (10:54)
[2021-01-16] MEDS: BACITRACIN 0.9 GM PACKET TP SCH (10:58)
[2021-01-16] MEDS: LISINOPRIL 20 MG TABLET PO SCH ×2 (10:59→22:23)
[2021-01-16] MEDS: PRENATAL VITAMINS W/ FOLIC ACID TABLET (FP) PO SCH (10:59)
[2021-01-16] MEDS: amLODIPine BESYLATE 10 MG TABLET (FP) PO SCH (10:59)
[2021-01-16] MEDS: guaiFENesin 200 MG/10 ML 10 ML UNIT-DOSE CUPS PO PRN ×2 (11:02→22:26)
[2021-01-16] MEDS: MELATONIN 5 MG TABLETS PO SCH (22:23)
[2021-01-16] MEDS: THIAMINE HCL 100 MG TABLET (FP) PO SCH (22:23)
[2021-01-17] MEDS ORDERED: LORazepam 0.5 MG TABLET PO PRN
[2021-01-17] MEDS: LORazepam 0.5 MG TABLET PO SCH ×4 (05:28→22:13)
[2021-01-17] MEDS: guaiFENesin 200 MG/10 ML 10 ML UNIT-DOSE CUPS PO PRN ×3 (05:30→22:15)
[2021-01-17] MEDS: metFORMIN HCL 500 MG TABLET (FP) PO SCH (06:06)
[2021-01-17] MEDS ORDERED: AZITHROMYCIN 250 MG TABLET PO ONE (09:01)
[2021-01-17] MEDS ORDERED: ALBUTEROL SO4 HFA INHALER IH PRN (09:55)
[2021-01-17] MEDS: BACITRACIN 0.9 GM PACKET TP SCH (10:11)
[2021-01-17] MEDS: PRENATAL VITAMINS W/ FOLIC ACID TABLET (FP) PO SCH (10:11)
[2021-01-17] MEDS: amLODIPine BESYLATE 10 MG TABLET (FP) PO SCH (10:11)
[2021-01-17] MEDS: LISINOPRIL 20 MG TABLET PO SCH ×2 (10:12→22:13)
[2021-01-17 10:52] LABS: BASO % 0.8 % (0-2.0); EOS % 7.2 % (0-4.5); HEMOGLOBIN 12.4 GM/dL (11.7-16.9); MCH 34.2 pg (25.7-33.7); MCHC 34.5 g/dl (32.0-35.9); MEAN CELL VOLUME 99.1 fl (80-96); MEAN PLT VOLUME 8.4 fl (7.5-11.1); MONO % 11.9 % (3.8-10.2); NEUT % 48.1 % (42.8-82.8); PLATELET COUNT 110 K/MM3 (134-434); RBC 3.64 M/mm3 (4.00-5.60); RDW 14.5 % (11.9-15.9)
[2021-01-17 14:45] LABS: PH,URINE 7.5 (5.0-8.0); URINE APPEARANCE Clear; URINE BILIRUBIN Negative (NEGATIVE); URINE COLOR Yellow; URINE GLUCOSE (UA) Trace (NEGATIVE); URINE KETONE Trace (NEGATIVE); URINE LEUK ESTERASE Negative (NEGATIVE); URINE NITRITE Negative (NEGATIVE); URINE PROTEIN Negative (NEGATIVE)
[2021-01-17] MEDS: THIAMINE HCL 100 MG TABLET (FP) PO SCH (22:13)
[2021-01-17] MEDS: MELATONIN 5 MG TABLETS PO SCH (22:14)
[2021-01-18] MEDS ORDERED: LORazepam 0.5 MG TABLET PO ONE (05:00)
[2021-01-18] MEDS: guaiFENesin 200 MG/10 ML 10 ML UNIT-DOSE CUPS PO PRN (05:32)
[2021-01-18] MEDS: metFORMIN HCL 500 MG TABLET (FP) PO SCH (06:23)
[2021-01-18 09:47] VITALS: BP 121/86; PULSE 92; TEMP 98.2
[2021-01-18] MEDS ORDERED: AZITHROMYCIN 250 MG TABLET PO SCH (10:00)
== END 2021-01-18 09:47 | disposition home or self-care (01) | DRG 775 ==
LOC: YASAS 17:25 → Y6N 01-15 10:07
PROVIDERS: ADMIT Allergy & Immunology; ATTEND Allergy & Immunology
PROC: HZ2ZZZZ Detoxification Services for Substance Abuse Treatment (ICD-10-PCS; principal; 2021-01-15)
DX: F10.230 Alcohol dependence with withdrawal, uncomplicated (principal); F10.220 Alcohol dependence with intoxication, uncomplicated; F17.210 Nicotine dependence, cigarettes, uncomplicated; I10 Essential (primary) hypertension; E11.9 Type 2 diabetes mellitus without complications; Z79.84 Long term (current) use of oral hypoglycemic drugs; B18.2 Chronic viral hepatitis C; D64.9 Anemia, unspecified; J40 Bronchitis, not specified as acute or chronic; K00.0 Anodontia; R63.4 Abnormal weight loss; Z68.1 Body mass index [BMI] 19.9 or less, adult; Z91.14 Patient's other noncompliance with medication regimen; Z91.19 Patient's noncompliance with other medical treatment and regimen
CPT/HCPCS: 36415; 80053; 81003; 82962; 85025; 85027; 86780; 87389; C9803; U0003